=== PATIENT | male | born 1940 | race Caucasian/White ===

== ENCOUNTER 2021-12-07 12:52 | Emergency (ER) | payer OTHER, SELFPAY ==
[2021-12-07] VITALS (7 sets, daily range): BP systolic 133–170; BP diastolic 57–87; PULSE 50–58; RESP 8–18; TEMP 36.4; O2SAT 95–98; BMI 25.0
--- NOTE | 2021-12-07 13:11 | CRLHL7_ITS ---
For Patients: As a result of the Century Cures Act, medical imaging exams and procedure reports are released immediately into your electronic medical record. You may view this report before your referring provider. If you have questions, please contact your health care provider. INDICATION: Chest pain. History of [place] COMPARISON: July 16, 2020 TECHNIQUE: Portable single view study December 07, 2021 1:34 p.m. FINDINGS: TUBES AND LINES: None. HEART AND MEDIASTINUM: The heart size is normal. The mediastinal contour appears normal for patient age. LUNGS AND PLEURAL SPACES: The lungs appear normal.The pleural spaces are unremarkable. OSSEOUS STRUCTURES: Age-appropriate appearance. No acute focal finding. IMPRESSION: No evidence of active pulmonary disease. Dictated by Nikita Jewell MD @ 12/07/2021 1:41:02 PM (Electronically Signed)
--- NOTE | 2021-12-07 13:15 | ED.CHESTPAIN ---
HPI - Chest Pain General Time Seen by Provider: 13:15 Date Seen: 12/07/21 Stated Complaint: Heart attack 1+ year ago, ache in chest Time Seen by Provider: 12/07/21 13:05 Source: patient and RN notes reviewed Mode of arrival: ambulatory Limitations: no limitations History of Present Illness HPI narrative: Patient is coming into the ER with an episode of chest pain that happened this morning. He was just lying in bed resting in when he felt it coming on. It was in the left side of his chest, as well as some in the center of his chest, lasted maybe 45-60 minutes. He did take a nitroglycerin and it did go away. He had a heart attack over a year ago and went to [facility]. He states the vessel was small that they did not put anything in. He is off Plavix now as it has been over a year since his heart attack. He did take an 81 mg aspirin as per his usual routine this morning. The pain is not there now. It was reminiscent of his prior chest pain with this heart attack although that pain continued to intensify in get worse. He had no associated GI symptoms such as nausea, no pain into his extremities, no pain into his jaw or neck. Did not feel any respiratory symptoms with this. He has not had any recent illness, no cough or cold symptoms, no fevers or chills. He was at rest when this came on. Patient does have some chronic left shoulder issues that were not associated with this today. He does tell me that if he lays on his left shoulder is left shoulder will ache. Reviewed with him that that is likely something either with the shoulder itself for rotator cuff but do not feel it is pertinent to his chest symptoms today. MD complaint: chest pain Pertinent past history: coronary artery disease and prior [place] Onset (ago): hour(s) Timing of current episode: now resolved Onset: during rest Pain location: substernal and left chest Pain radiation: none Related Data Home Medications Medication Instructions Recorded Confirmed alendronate 70 mg tablet mg PO 12/07/21 bupropion HCl 300 mg 24 hr tablet, mg PO 12/07/21 extended release clopidogrel 75 mg tablet mg 12/07/21 losartan 25 mg tablet mg 12/07/21 metoprolol succinate 25 mg mg PO 12/07/21 tablet,extended release 24 hr rosuvastatin 20 mg tablet mg 12/07/21 sildenafil 50 mg tablet (Viagra) 50 mg PO DAILY PRN 12/07/21 12/07/21 trazodone 100 mg tablet mg 12/07/21 Review of Systems Status of ROS Reports: 10 or more systems reviewed and unremarkable except as noted in History and below [facility] Medical History (Updated 12/07/21 @ 16:37 by Soumya Chand MD) NSTEMI (non-ST elevated myocardial infarction) Social History Smoking Status: Former smoker Do you use any of these nicotine containing products: None Second hand tobacco smoke exposure: No How often do you have a drink containing alcohol: 4 or more times a week How many standard drinks containing alcohol do you have on a typical day: 1 or 2 How often do you have six or more drinks on one occasion: Never AUDIT-C Alcohol total score: 4 Non-prescribed substance use: denies use Exam Const Vital Signs, click to edit/add: Vital Signs - 24 hr 12/07/21 13:02 12/07/21 14:12 12/07/21 14:30 Temperature 97.6 F Pulse Rate [Right Pulse Oximeter] 57 L 54 L 50 L Respiratory Rate 18 8 L Blood Pressure [Right Upper Arm] 133/57 L 142/69 H 135/74 Pulse Oximetry 98 95 98 12/07/21 15:00 12/07/21 15:30 12/07/21 16:00 Temperature Pulse Rate [Right Pulse Oximeter] 56 L 51 L 51 L Respiratory Rate 15 18 15 Blood Pressure [Right Upper Arm] 141/78 H 146/82 H 154/76 H Pulse Oximetry 97 97 97 12/07/21 16:30 Temperature Pulse Rate [Right Pulse Oximeter] 58 L Respiratory Rate 11 L Blood Pressure [Right Upper Arm] 170/87 H Pulse Oximetry 97 Documenting provider has reviewed patient's vital signs: yes Common normals: no apparent distress, average body habitus, oriented x3, no limitations, healthy appearing and alert General appearance: cooperative and comfortable Orientation/consciousness: Yes awake HENUT Common normals: normocephalic, head/scalp atraumatic, hearing grossly normal bilaterally, external ears normal, EAC's normal, external nose normal, nasal mucous membranes and turbinates normal, moist oral mucous membranes, oropharynx normal and dentition normal Head and scalp: normocephalic and atraumatic Nose: external nose normal and nasal mucous membranes and turbinates normal External ear: external ears normal External auditory canal: EAC's normal Eye Common normals: PERRL, EOMs intact bilaterally, conjunctivae normal and no scleral icterus Conjunctiva: conjunctiva(e) normal Pupil: PERRL Neck & C-Spine Common normals: full ROM, no lymphadenopathy, supple, no meningeal signs, no JVD and thyroid normal Thyroid: thyroid normal Chest Common normals: inspection of chest normal and palpation of chest normal Resp Common normals: normal respiratory effort, no retractions, no use of accessory muscles and clear to auscultation bilaterally Auscultation: clear to auscultation bilaterally Cardio Common normals: no JVD, regular rate (Heart sounds somewhat distant), regular rhythm, S1 normal heart sound, S2 normal heart sound, no gallops, no clicks and no murmurs Rate: regular rate (Heart sounds somewhat distant) Rhythm: regular rhythm Heart sounds: S1 normal and S2 normal GI Common normals: Normal to inspection, nondistended, normoactive bowel sounds present, soft to palpation, non-tender, no hepatosplenomegaly, no masses and no bruits Palpation: soft and no hepatosplenomegaly Extremity Common normals: normal to inspection, full ROM, normal capillary refill, no joint enlargement, no clubbing, cyanosis or edema, no calf tenderness and no pedal edema Neuro Common normals: oriented x3 and gait normal Sensorium/orientation: awake and alert Meningeal signs: no meningeal signs Speech: speech normal Course Course Hospital Course: Patient is comfortable now, certainly this could have been an anginal equivalent. We will give him 324 mg aspirin, place him on cardiac monitoring pulse oximetry, obtained portable chest x-ray and appropriate labs. Other possible etiologies are new respiratory illness, thromboembolic disease. It seems most likely that this is something cardiac however given his history. Need to await my labs and EKG, portable chest x-ray and we will guide therapy accordingly. He is currently hemodynamically stable and pain-free. Reevaluation(s) Reevaluation #1: Reviewed with patient that his EKG and chest x-ray looking fine. Discussed that we do not have labs back yet and I will be back once I have seen numb. He states when he touches his left lower chest wall he can feel some discomfort that reproduces the pain and wonders if this is a cartilage issue. Have reviewed with him we really should await the troponin and laboratory evaluation. I believe this happened around 11:00 a.m. or so per patient. If we draw a 2nd troponin here shortly that would give us coverage over a 3 hour window and if both troponins are normal, can likely discharge to home with appropriate follow-up. Time: 14:40 Vital Signs Vital signs: Initial Vital Signs Temperature 97.6 F 12/07/21 13:02 Temperature Source Temporal Artery Scan 12/07/21 13:02 Pulse Rate 57 L 12/07/21 13:02 Respiratory Rate 18 12/07/21 13:02 Blood Pressure 133/57 L 12/07/21 13:02 Blood Pressure Mean 82 12/07/21 13:02 Blood Pressure Position Sitting 12/07/21 13:02 Pulse Oximetry 98 12/07/21 13:02 Oxygen Delivery Method 12/07/21 13:02 Vital Signs Temperature 97.6 F 12/07/21 13:02 Pulse Rate 57 L 12/07/21 13:02 Respiratory Rate 18 12/07/21 13:02 Blood Pressure 133/57 L 12/07/21 13:02 Pulse Oximetry 98 12/07/21 13:02 Temperature 97.6 F 12/07/21 13:02 Pulse Rate 58 L 12/07/21 16:30 Respiratory Rate 11 L 12/07/21 16:30 Blood Pressure 170/87 H 12/07/21 16:30 Pulse Oximetry 97 12/07/21 16:30 MDM - Chest Pain Lab Data Attestation: I reviewed the patient's lab results. Labs: Lab Results 12/07/21 12/07/21 12/07/21 Range/Units 13:12 14:00 14:00 WBC 4.96 (4.50-11.00) K/uL RBC 3.91 L (4.30-5.90) m/uL Hgb 12.4 L (13.5-17.5) gm/dL Hct 37.4 (37.0-53.0) % MCV 96 (80-100) fL MCH 32 (26-34) pg MCHC 33 (32-36) gm/dL RDW Coeff of Edna 12.2 (11.5-15.5) % Plt Count 137 L (140-440) K/uL Neut % (Auto) 66.7 (42.0-72.0) % Lymph % (Auto) 22.8 (20-44) % Mineral % (Auto) 9.1 (0.0-11.0) % Eos % (Auto) 0.8 (0.0-7.0) % Baso % (Auto) 0.6 (0.0-3.0) % Neut # (Auto) 3.31 (1.7-7.0) K/uL Lymph # (Auto) 1.13 (0.90-2.90) K/uL Mineral # (Auto) 0.50 (0.00-0.90) K/UL Eos # (Auto) 0.04 (0.00-0.50) K/uL Baso # (Auto) 0.03 (0.00-0.30) K/uL Abs Immat Gran (auto) 0.00 (0.00-0.30) K/uL D-Dimer Quant (PE/DVT) 1.41 H (0.00-0.50) ug/ml Sodium (135-149) mmol/L Potassium (3.6-5.1) mmol/L Chloride (96-114) mmol/L Carbon Dioxide (20-32) mmol/L BUN (7-30) mg/dL Creatinine (0.5-1.5) mg/dL Estimated Creat Clear Estimated GFR ml/min Glucose (60-115) mg/dL Calcium (8.4-10.6) mg/dL Magnesium (1.5-2.6) mg/dL Total Bilirubin (0.1-1.5) mg/dL AST (12-35) U/L ALT (4-50) U/L Alkaline Phosphatase (40-150) U/L Troponin I (0.01-0.04) ng/mL NT-Pro-B Natriuret Pep (0-450) PG/mL Total Protein (6.0-8.3) g/dL Albumin (3.3-5.0) g/dL SARS-CoV-2 (PCR) Negative SARS-CoV-2 (Negative) POC Troponin I (0.01-0.04) ng/ml 12/07/21 12/07/21 Range/Units 14:00 14:58 WBC (4.50-11.00) K/uL RBC (4.30-5.90) m/uL Hgb (13.5-17.5) gm/dL Hct (37.0-53.0) % MCV (80-100) fL MCH (26-34) pg MCHC (32-36) gm/dL RDW Coeff of Edna (11.5-15.5) % Plt Count (140-440) K/uL Neut % (Auto) (42.0-72.0) % Lymph % (Auto) (20-44) % Mineral % (Auto) (0.0-11.0) % Eos % (Auto) (0.0-7.0) % Baso % (Auto) (0.0-3.0) % Neut # (Auto) (1.7-7.0) K/uL Lymph # (Auto) (0.90-2.90) K/uL Mineral # (Auto) (0.00-0.90) K/UL Eos # (Auto) (0.00-0.50) K/uL Baso # (Auto) (0.00-0.30) K/uL Abs Immat Gran (auto) (0.00-0.30) K/uL D-Dimer Quant (PE/DVT) (0.00-0.50) ug/ml Sodium 138 (135-149) mmol/L Potassium 4.5 (3.6-5.1) mmol/L Chloride 110 (96-114) mmol/L Carbon Dioxide 26 (20-32) mmol/L BUN 17 (7-30) mg/dL Creatinine 1.0 (0.5-1.5) mg/dL Estimated Creat Clear 53.17 Estimated GFR 76 ml/min Glucose 98 (60-115) mg/dL Calcium 8.4 (8.4-10.6) mg/dL Magnesium 2.2 (1.5-2.6) mg/dL Total Bilirubin 0.3 (0.1-1.5) mg/dL AST 27 (12-35) U/L ALT 23 (4-50) U/L Alkaline Phosphatase 43 (40-150) U/L Troponin I < 0.01 L (0.01-0.04) ng/mL NT-Pro-B Natriuret Pep 210 (0-450) PG/mL Total Protein 6.1 (6.0-8.3) g/dL Albumin 3.6 (3.3-5.0) g/dL SARS-CoV-2 (PCR) (Negative) POC Troponin I 0.03 (0.01-0.04) ng/ml Imaging Data Chest x-ray: Attestation: I have reviewed the pertinent imaging results. Radiologist's impression: Patient: ADONIS KING JR Facility:?[facility] Patient ID:?[id number] Site Patient ID:?[id number]. Site :?[id number] Study:?XRay Chest PORTABLE-12/07/2021 1:30:44 PM Ordering Physician:Ann Dooley Final Report: INDICATION: Chest pain. History of [place] COMPARISON: July 16, 2020 TECHNIQUE: Portable single view study December 07, 2021 1:34 p.m. FINDINGS: TUBES AND LINES: None. HEART AND MEDIASTINUM: The heart size is normal. The mediastinal contour appears normal for patient age. LUNGS AND PLEURAL SPACES: The lungs appear normal.The pleural spaces are unremarkable. OSSEOUS STRUCTURES: Age-appropriate appearance. No acute focal finding. IMPRESSION: No evidence of active pulmonary disease. Dictated by Nikita Jewell MD @ 12/07/2021 1:41:02 PM (Electronic Signature) ECG Data Attestation: I personally reviewed and interpreted this ECG as follows: (Sinus bradycardia, 52 beats per minute. No ischemia noted.) ECG interpretation date: 12/07/21 ECG interpretation time: 13:39 Core Measures AMI core measures followed: No Measure exclusions: not indicated Critical Care Time Critical Care Time Critical Care Time: No Discharge Plan Discharge Clinical Impression: Arteriosclerotic cardiovascular disease, Chest pain Condition: Stable Instructions: Coronary Artery Disease (DC), Chest Pain (ED) Additional Instructions: Continue with current medications, no changes at this point. We will contact you with recommendations from Cardiology as far as follow-up testing. I will hopefully talk to them shortly. Should you have recurrent chest pain or symptoms concerning of chest pain in the interim that you cannot attribute to her shoulder or pinpoint to reproducible chest wall pain, you do need to be re-evaluated. Prescriptions: No Action alendronate 70 mg tablet PO 0RF Label Comments: TAKE 1 TABLET BY MOUTH ONCE PER WEEK IN THE MORNING. TAKE ON AN EMPTY STOMACH WITH A FULL GLASS OF WATER. DO NOT LIE DOWN FOR 1 HOUR. clopidogrel 75 mg tablet 0RF bupropion HCl 300 mg tablet extended release 24 hr PO 0RF trazodone 100 mg tablet 0RF losartan 25 mg tablet 0RF metoprolol succinate 25 mg tablet extended release 24 hr PO 0RF rosuvastatin 20 mg tablet 0RF sildenafil [Viagra] 50 mg tablet 50 mg PO DAILY PRN0RF Rx Instructions: administer 30 minutes to 4 hours before activity Follow Up/Referrals: Wang Coppola MD [Primary Care Provider] - Stand Alone Forms: [facility] Info Instructions
[2021-12-07] MEDS: ASPIRIN 81 MG TAB.CHEW 324 MG PO (13:36)
[2021-12-07 14:05] LABS: Basophils Absolute Auto 0.03 K/uL (0.00-0.30); Basophils Percent Auto 0.6 % (0.0-3.0); Eosinophils Absolute Auto 0.04 K/uL (0.00-0.50); Eosinophils Percent Auto 0.8 % (0.0-7.0); Hematocrit 37.4 % (37.0-53.0); Hemoglobin* 12.4 gm/dL (13.5-17.5); Lymphocytes Absolute Auto 1.13 K/uL (0.90-2.90); Lymphocytes Percent Auto 22.8 % (20-44); Mean Corpuscular HGB Conc 33 gm/dL (32-36); Mean Corpuscular Hemoglobin 32 pg (26-34); Mean Corpuscular Volume 96 fL (80-100); Monocytes Percent Auto 9.1 % (0.0-11.0); Neutrophils Absolute Auto 3.31 K/uL (1.7-7.0); Neutrophils Percent Auto 66.7 % (42.0-72.0); Platelet Count* 137 K/uL (140-440); RDW Coefficient of Variation % 12.2 % (11.5-15.5); Red Blood Count 3.91 m/uL (4.30-5.90); White Blood Count* 4.96 K/uL (4.50-11.00)
[2021-12-07 14:14] LABS: Slide Review Reflex No
[2021-12-07 14:21] LABS: Albumin* 3.6 g/dL (3.3-5.0)
[2021-12-07 14:22] LABS: Chloride* 110 mmol/L (96-114); Potassium* 4.5 mmol/L (3.6-5.1); Sodium* 138 mmol/L (135-149)
[2021-12-07 14:23] LABS: D Dimer Quantitative* 1.41 ug/ml (0.00-0.50)
[2021-12-07 14:24] LABS: Aspartate Amino Transferase* 27 U/L (12-35); Bilirubin Total* 0.3 mg/dL (0.1-1.5); Carbon Dioxide* 26 mmol/L (20-32); Est. Creatinine Clearance* 53.17; Estimated Glomerular Filt Rate 76 ml/min
[2021-12-07 14:25] LABS: Alanine Aminotransferase* 23 U/L (4-50); Alkaline Phosphatase* 43 U/L (40-150); Blood Urea Nitrogen* 17 mg/dL (7-30); Calcium* 8.4 mg/dL (8.4-10.6); Glucose* 98 mg/dL (60-115); Magnesium* 2.2 mg/dL (1.5-2.6); Total Protein* 6.1 g/dL (6.0-8.3)
[2021-12-07 14:33] LABS: NT Pro B Type NatriureticPept* 210 PG/mL (0-450)
[2021-12-07 14:41] LABS: Troponin I* < 0.01 ng/mL (0.01-0.04)
[2021-12-07 15:44] LABS: SARS PCR* Negative SARS-CoV-2 (Negative)
[2021-12-07 16:13] LABS: Troponin, Point-of-Care* 0.03 ng/ml (0.01-0.04)
== END 2021-12-07 16:51 | disposition home or self-care (01) ==
PROVIDERS: Emergency Provider Family Medicine; PCP Surgery
DX: I25.10 Atherosclerotic heart disease of native coronary artery without angina pectoris (principal)
CPT/HCPCS: 36415; 71045; 80053; 83735; 83880; 84484; 85025; 85379; 87635; 93005; 99284; 99285; A9270

== ENCOUNTER 2022-05-11 13:00 | Outpatient (RCR) | payer OTHER, SELFPAY | END 2022-07-18 12:08 | disposition home or self-care (01) | PROVIDERS: PCP Surgery; Visit Provider Surgery | DX: R32 Unspecified urinary incontinence (principal); M51.34 Other intervertebral disc degeneration, thoracic region; M43.16 Spondylolisthesis, lumbar region; M43.14 Spondylolisthesis, thoracic region; Z51.89 Encounter for other specified aftercare | CPT/HCPCS: 97110; 97140; 97162; 97164 ==

== ENCOUNTER 2022-07-08 16:28 | Emergency (ER) | payer OTHER, SELFPAY ==
[2022-07-08] VITALS (10 sets, daily range): BP systolic 139–164; BP diastolic 71–81; PULSE 67–81; RESP 12; TEMP 36.6; O2SAT 94–98; BMI 25.8
[2022-07-08 17:51] LABS: Basophils Absolute Auto 0.03 K/uL (0.00-0.30); Basophils Percent Auto 0.4 % (0.0-3.0); Eosinophils Absolute Auto 0.05 K/uL (0.00-0.50); Eosinophils Percent Auto 0.7 % (0.0-7.0); Hemoglobin* 13.6 gm/dL (13.5-17.5); Immature Granulocytes Abs Auto 0.01 K/uL (0.00-0.30); Immature Granulocytes Pct Auto 0.1 %; Lymphocytes Percent Auto 18.6 % (20-44); Mean Corpuscular HGB Conc 34 gm/dL (32-36); Mean Corpuscular Hemoglobin 31 pg (26-34); Mean Corpuscular Volume 92 fL (80-100); Monocytes Percent Auto 11.4 % (0.0-11.0); Neutrophils Absolute Auto 5.17 K/uL (1.7-7.0); Neutrophils Percent Auto 68.8 % (42.0-72.0); Platelet Count* 182 K/uL (140-440); RDW Coefficient of Variation % 12.8 % (11.5-15.5); Red Blood Count 4.34 m/uL (4.30-5.90); White Blood Count* 7.52 K/uL (4.50-11.00)
[2022-07-08 17:55] LABS: Albumin* 4.3 g/dL (3.3-5.0); Chloride* 110 mmol/L (96-114); Sodium* 141 mmol/L (135-149)
[2022-07-08 17:56] LABS: Potassium* 3.8 mmol/L (3.6-5.1); Slide Review Reflex No
[2022-07-08 17:58] LABS: Carbon Dioxide* 25 mmol/L (20-32); Creatinine* 1.1 mg/dL (0.5-1.5); Est. Creatinine Clearance* 50.08; Estimated Glomerular Filt Rate 68 ml/min
[2022-07-08 17:59] LABS: Alanine Aminotransferase* 18 U/L (4-50); Alkaline Phosphatase* 100 U/L (40-150); Aspartate Amino Transferase* 24 U/L (12-35); Bilirubin Direct* 0.1 mg/dL (0.0-0.5); Bilirubin Total* 0.5 mg/dL (0.1-1.5); Blood Urea Nitrogen* 19 mg/dL (7-30); Calcium* 9.2 mg/dL (8.4-10.6); Glucose* 116 mg/dL (60-115); Total Protein* 7.1 g/dL (6.0-8.3)
[2022-07-08 18:11] LABS: Troponin I* 0.02 ng/mL (0.01-0.04)
[2022-07-08 18:15] LABS: C Reactive Protein* < 0.5 mg/dL (0.5-1.0)
--- NOTE | 2022-07-08 18:28 | ED.GENADULT ---
HPI - General Adult General Chief complaint: Shortness of Breath/Dyspnea Stated complaint: Had Heart attack symptoms last night Time Seen by Provider: 07/08/22 16:32 Source: patient and family Mode of arrival: ambulatory Limitations: no limitations History of Present Illness HPI narrative: 81-year-old male coming in today with his , concerned about an episode he suffered last night. He states that around 2:00 a.m. in the morning he started having palpitations. States that his heart was beating faster and harder and that he was skipping beats. This made him feel short of breath and he states that he had to take very deep breaths in order to fill his lungs. At some point in time he felt lightheaded like he was going to pass out but he never did. He states that the episode lasted for about 2 hours. He fell asleep around 4:00 a.m. this morning and slept his usual hours. He states that he always goes to bed after midnight and sleeps in late, this is not unusual for him. He woke up this morning asymptomatic and has had a completely normal day. He states that he called his clinic and the clinic told him to come to the emergency room. He stated that he was not having chest pain at that time, no fevers or chills. No nausea or vomiting. He states that he has had palpitations in the past but never quite this strong. He was not diaphoretic. He denies any vertiginous symptoms. And again he has been completely asymptomatic all day, greater than 12 hours. Related Data Home Medications Medication Instructions Recorded Confirmed alendronate 70 mg tablet mg PO 12/07/21 06/22/22 losartan 25 mg tablet mg 12/07/21 06/22/22 metoprolol succinate 25 mg mg PO 12/07/21 06/22/22 tablet,extended release 24 hr rosuvastatin 20 mg tablet mg 12/07/21 06/22/22 sildenafil 50 mg tablet (Viagra) 50 mg PO DAILY PRN 12/07/21 06/22/22 trazodone 100 mg tablet mg 12/07/21 06/22/22 Allergies Allergy/AdvReac Type Severity Reaction Status Date / Time No Known Drug Allergies Allergy Verified 06/22/22 14:16 Review of Systems Status of ROS: Reports: 10 or more systems reviewed and unremarkable except as noted in History and below [facility] Medical History Fall NSTEMI (non-ST elevated myocardial infarction) Social History Smoking Status: Former smoker Do you use any of these nicotine containing products: None Second hand tobacco smoke exposure: No How often do you have a drink containing alcohol: 4 or more times a week How many standard drinks containing alcohol do you have on a typical day: 1 or 2 How often do you have six or more drinks on one occasion: Never AUDIT-C Alcohol total score: 4 Non-prescribed substance use: former substance user Non-prescribed substance use details: thc Exam Narrative: Exam Narrative: Well-nourished well-developed patient in no acute distress. Alert and oriented. Answers questions appropriately. Mood and affect are appropriate. Thoughts are goal oriented and rational. No tangential or magical thinking noted. Patient speaks in full sentences without needing to catch their breath. HEENT: Normocephalic atraumatic. Pupils are equally round reactive to light. Extraocular muscles are intact. Conjunctivae are moist without any icterus noted. Moist mucous membranes. Posterior pharynx is normal. Neck is soft without any lymphadenopathy or thyromegaly. No masses are appreciated. Cardiovascular: Heart is regular rate and rhythm S1 and S2 are present without any murmurs. Lungs: Clear to auscultation bilaterally no wheezes rhonchi or rales are appreciated. Patient takes deep breaths without any discomfort. Abdomen: Soft and nontender nondistended with normal bowel sounds. No guarding or rebound. No masses or organomegaly appreciated. Extremities: Bilateral lower extremities are without edema. Normal DP and PT pulses. Skin: Well perfused without any obvious rashes. Const: Vital Signs, click to edit/add: Vital Signs - 24 hr 07/08/22 16:37 07/08/22 16:46 07/08/22 17:03 Temperature 97.9 F Pulse Rate 76 Pulse Rate [Pulse Oximeter] 81 Respiratory Rate 12 Blood Pressure Blood Pressure [Le ft Upper Arm] 164/81 H Pulse Oximetry 97 97 95 Oxygen Delivery Me thod Room Air 07/08/22 17:30 07/08/22 17:40 Temperature Pulse Rate 71 75 Pulse Rate [Pulse Oximeter] Respiratory Rate Blood Pressure 147/72 H Blood Pressure [Le ft Upper Arm] Pulse Oximetry 96 94 Oxygen Delivery Me thod Course Course Hospital Course: Patient was placed on the content development manager. IV was established and labs were drawn. Labs were unremarkable. Patient had no episodes of arrhythmias while he was here. His EKG, read by me, shows normal sinus rhythm with a left axis deviation, pulse 73. Vital Signs Vital signs: Initial Vital Signs Temperature 97.9 F 07/08/22 16:37 Temperature Source Temporal Artery Scan 07/08/22 16:37 Pulse Rate 81 07/08/22 16:37 Pulse Rhythm 07/08/22 16:37 Respiratory Rate 12 07/08/22 16:37 Blood Pressure 164/81 H 07/08/22 16:37 Blood Pressure Mean 108 07/08/22 16:37 Blood Pressure Position Sitting 07/08/22 16:37 Pulse Oximetry 97 07/08/22 16:37 Oxygen Delivery Method 07/08/22 16:37 Vital Signs Temperature 97.9 F 07/08/22 16:37 Pulse Rate 81 07/08/22 16:37 Respiratory Rate 12 07/08/22 16:37 Blood Pressure 164/81 H 07/08/22 16:37 Pulse Oximetry 97 07/08/22 16:37 Oxygen Delivery Method 07/08/22 16:37 Temperature 97.9 F 07/08/22 16:37 Pulse Rate 75 07/08/22 17:40 Respiratory Rate 12 07/08/22 16:37 Blood Pressure 147/72 H 07/08/22 17:40 Pulse Oximetry 94 07/08/22 17:40 Oxygen Delivery Method 07/08/22 16:37 Medical Decision Making MDM Narrative Medical decision making narrative: 81-year-old male with an episode of palpitations overnight. Patient tells me that there is a possibility that it could have been anxiety but is not quite sure. At this time I see no evidence of any abnormalities, workup was unremarkable and his period of observation was unremarkable also. I do recommend he follow up with primary care provider or his greenkeeper. At that time they can discuss whether or not he needs any further testing or even Holter monitor. Certainly if his symptoms return I do want him to come to the ER. Patient was agreeable with everything we discussed had no other questions. Medical Records Medical records reviewed: Yes I reviewed the patient's medical records Lab Data Lab results reviewed: Yes I reviewed the patient's lab results Labs: Lab Results 07/08/22 07/08/22 07/08/22 Range/Units 17:17 17:17 17:17 WBC 7.52 (4.50-11.00) K/uL RBC 4.34 (4.30-5.90) m/uL Hgb 13.6 (13.5-17.5) gm/dL Hct 40.0 (37.0-53.0) % MCV 92 (80-100) fL MCH 31 (26-34) pg MCHC 34 (32-36) gm/dL RDW Coeff of Edna 12.8 (11.5-15.5) % Plt Count 182 (140-440) K/uL Neut % (Auto) 68.8 (42.0-72.0) % Lymph % (Auto) 18.6 L (20-44) % [place] % (Auto) 11.4 H (0.0-11.0) % Eos % (Auto) 0.7 (0.0-7.0) % Baso % (Auto) 0.4 (0.0-3.0) % Neut # (Auto) 5.17 (1.7-7.0) K/uL Lymph # (Auto) 1.40 (0.90-2.90) K/uL [place] # (Auto) 0.90 (0.00-0.90) K/UL Eos # (Auto) 0.05 (0.00-0.50) K/uL Baso # (Auto) 0.03 (0.00-0.30) K/uL Sodium 141 (135-149) mmol/L Potassium 3.8 (3.6-5.1) mmol/L Chloride 110 (96-114) mmol/L Carbon Dioxide 25 (20-32) mmol/L BUN 19 (7-30) mg/dL Creatinine 1.1 (0.5-1.5) mg/dL Estimated Creat Clear 50.08 Estimated GFR 68 ml/min Glucose 116 H (60-115) mg/dL Calcium 9.2 (8.4-10.6) mg/dL Total Bilirubin 0.5 Cancelled (0.1-1.5) mg/dL Direct Bilirubin 0.1 Cancelled (0.0-0.5) mg/dL AST 24 Cancelled (12-35) U/L ALT 18 Cancelled (4-50) U/L Alkaline Phosphatase 100 Cancelled (40-150) U/L Troponin I 0.02 Cancelled (0.01-0.04) ng/mL C-Reactive Protein < 0.5 L (0.5-1.0) mg/dL Total Protein 7.1 Cancelled (6.0-8.3) g/dL Albumin 4.3 Cancelled (3.3-5.0) g/dL ECG Data Attestation: I personally reviewed and interpreted this ECG as follows: Discharge Plan Discharge Clinical Impression: Palpitation Patient Disposition: Home, Self-Care Condition: Stable Additional Instructions: Your workup today was entirely normal. Recommend you follow-up with your primary care provider or your greenkeeper to discuss any necessary next steps. If your symptoms return I do want you to return to the ER. Prescriptions: No Action alendronate 70 mg tablet PO Label Comments: TAKE 1 TABLET BY MOUTH ONCE PER WEEK IN THE MORNING. TAKE ON AN EMPTY STOMACH WITH A FULL GLASS OF WATER. DO NOT LIE DOWN FOR 1 HOUR. trazodone 100 mg tablet losartan 25 mg tablet metoprolol succinate 25 mg tablet extended release 24 hr PO rosuvastatin 20 mg tablet sildenafil [Viagra] 50 mg tablet 50 mg PO DAILY PRN Rx Instructions: administer 30 minutes to 4 hours before activity Follow Up/Referrals: Ann Ramirez PA-C [Primary Care Provider] - Stand Alone [facility] Info [facility]
== END 2022-07-08 18:48 | disposition home or self-care (01) ==
PROVIDERS: Emergency Provider Family Medicine; PCP Student in an Organized Health Care Education/Training Program
DX: R00.2 Palpitations (principal)
CPT/HCPCS: 36415; 80048; 80076; 84484; 85025; 86140; 93005; 94761; 99284

== ENCOUNTER 2022-07-16 13:56 | Emergency (ER) | payer OTHER, SELFPAY ==
[2022-07-16 14:02] VITALS: BP 141/75; PULSE 66; RESP 18; TEMP 36.9; O2SAT 99; BMI 25.8
--- NOTE | 2022-07-16 15:07 | ED.GENADULT ---
HPI - General Adult General Chief complaint: Arrhythmia/Palpitations Stated complaint: Heart Palpitations,Dizziness,Feels like fainting Time Seen by Provider: 07/16/22 14:06 Source: patient Mode of arrival: ambulatory Limitations: no limitations History of Present Illness HPI narrative: Patient is an 81-year-old male coming in today concerned about palpitations. States that last night he had a 30 minute episode where his heart was beating very strongly and irregularly. He felt dizzy when this was occurring. He states that he did come in last night because he always knows that the episodes will go away. His previous 1 was on the 08 of July and he states he has not had anything since. He denies any chest pain or shortness of breath. He comes in this morning because he feels like he is going to . Patient tells me that he fell on the ice over a month ago and injured his shoulder. He states that he still has soreness from that fall. He is concerned because he has heard many people say ?once you fall, that is the beginning of the end?. Patient has no symptoms right now. Related Data Home Medications Medication Instructions Recorded Confirmed alendronate 70 mg tablet mg PO 12/07/21 06/22/22 losartan 25 mg tablet mg 12/07/21 06/22/22 metoprolol succinate 25 mg mg PO 12/07/21 06/22/22 tablet,extended release 24 hr rosuvastatin 20 mg tablet mg 12/07/21 06/22/22 sildenafil 50 mg tablet (Viagra) 50 mg PO DAILY PRN 12/07/21 06/22/22 trazodone 100 mg tablet mg 12/07/21 06/22/22 Allergies Allergy/AdvReac Type Severity Reaction Status Date / Time No Known Drug Allergies Allergy Verified 06/22/22 14:16 Review of Systems Status of ROS: Reports: 10 or more systems reviewed and unremarkable except as noted in History and below [facility] Medical History Fall NSTEMI (non-ST elevated myocardial infarction) Social History Smoking Status: Former smoker Do you use any of these nicotine containing products: None Second hand tobacco smoke exposure: No How often do you have a drink containing alcohol: 4 or more times a week How many standard drinks containing alcohol do you have on a typical day: 1 or 2 How often do you have six or more drinks on one occasion: Never AUDIT-C Alcohol total score: 4 Non-prescribed substance use: former substance user Non-prescribed substance use details: thc Exam Narrative: Exam Narrative: Well-nourished well-developed patient in no acute distress. Alert and oriented. Answers questions appropriately. Mood and affect are appropriate. Thoughts are goal oriented and rational. No tangential or magical thinking noted. Patient speaks in full sentences without needing to catch his breath. HEENT: Normocephalic atraumatic. Pupils are equally round reactive to light. Extraocular muscles are intact. Conjunctivae are moist without any icterus noted. Moist mucous membranes. Posterior pharynx is normal. Neck is soft without any lymphadenopathy or thyromegaly. No masses are appreciated. Cardiovascular: Heart is regular rate and rhythm S1 and S2 are present without any murmurs. Lungs: Clear to auscultation bilaterally no wheezes rhonchi or rales are appreciated. Patient takes deep breaths without any discomfort. Abdomen: Soft and nontender nondistended with normal bowel sounds. Extremities: Bilateral lower extremities are without edema. Normal DP and PT pulses. Skin: Well perfused without any obvious rashes. Const: Vital Signs, click to edit/add: Vital Signs - 24 hr 07/16/22 14:02 Temperature 98.4 F Pulse Rate [Right Pulse Oximeter] 66 Respiratory Rate 18 Blood Pressure [Ri ght Upper Arm] 141/75 H Pulse Oximetry 99 Oxygen Delivery Me thod Room Air Course Course Hospital Course: Patient was placed on a cardiac/vascular sonographer, no arrhythmia is noted while he was here. EKG showed normal sinus rhythm with a left shift axis deviation, pulse 65. This is unchanged from previous EKG. Troponin was 0. Discussed with patient next steps: We talked about hospitalization and cardiac/vascular sonographer while here. I do not think that this will be a good option for him given that his episodes are so spread out. And given the fact that he is completely asymptomatic at this time he would not qualify for hospitalization. We discussed a 24 hour Holter monitor which is something we can do out of the ER. Patient states that he has had these before he is not quite sure why but he felt that this was a good idea. Vital Signs Vital signs: Initial Vital Signs Temperature 98.4 F 07/16/22 14:02 Temperature Source Temporal Artery Scan 07/16/22 14:02 Pulse Rate 66 07/16/22 14:02 Respiratory Rate 18 07/16/22 14:02 Blood Pressure 141/75 H 07/16/22 14:02 Blood Pressure Mean 97 07/16/22 14:02 Blood Pressure Position Sitting 07/16/22 14:02 Pulse Oximetry 99 07/16/22 14:02 Oxygen Delivery Method 07/16/22 14:02 Vital Signs Temperature 98.4 F 07/16/22 14:02 Pulse Rate 66 07/16/22 14:02 Respiratory Rate 18 07/16/22 14:02 Blood Pressure 141/75 H 07/16/22 14:02 Pulse Oximetry 99 07/16/22 14:02 Oxygen Delivery Method 07/16/22 14:02 Temperature 98.4 F 07/16/22 14:02 Pulse Rate 66 07/16/22 14:02 Respiratory Rate 18 07/16/22 14:02 Blood Pressure 141/75 H 07/16/22 14:02 Pulse Oximetry 99 07/16/22 14:02 Oxygen Delivery Method 07/16/22 14:02 Medical Decision Making MDM Narrative Medical decision making narrative: 81-year-old male with intermittent episodes of palpitations. Since our last visit in the ER patient tells me he has not followed up with his primary care provider or his communications technologist as it was recommended for him to do. We discussed the importance of this follow-up at this time. Patient will be discharged home on a 48 hour Holter. And once again we had the same conversation we had last time he was in the ER that he needs to come into the emergency department while he is symptomatic instead of waiting until the next day when his symptoms have abated. Patient states that he understands and has no other questions. Lastly, we discussed that his fall does not mean that he is going to . Medical Records Medical records reviewed: Yes I reviewed the patient's medical records Lab Data Lab results reviewed: Yes I reviewed the patient's lab results Labs: Lab Results 07/16/22 Range/Units 14:38 POC Troponin I 0.00 L (0.01-0.04) ng/ml ECG Data Attestation: I personally reviewed and interpreted this ECG as follows: Discharge Plan Discharge Clinical Impression: Palpitation Patient Disposition: Home, Self-Care Condition: Stable Additional Instructions: You will be to follow-up with your primary care provider or communications technologist to go over the results of her Holter monitor. You need to return to the emergency department if this episode occurs again, return to the ER while the episode is occurring. You also may need longer cardiac monitoring that we can provide from the emergency department. You should have this conversation with your primary care provider or your communications technologist. Prescriptions: No Action alendronate 70 mg tablet PO Label Comments: TAKE 1 TABLET BY MOUTH ONCE PER WEEK IN THE MORNING. TAKE ON AN EMPTY STOMACH WITH A FULL GLASS OF WATER. DO NOT LIE DOWN FOR 1 HOUR. trazodone 100 mg tablet losartan 25 mg tablet metoprolol succinate 25 mg tablet extended release 24 hr PO rosuvastatin 20 mg tablet sildenafil [Viagra] 50 mg tablet 50 mg PO DAILY PRN Rx Instructions: administer 30 minutes to 4 hours before activity Follow Up/Referrals: Ann Ramirez PA-C [Primary Care Provider] - Stand Alone Forms: [employer] Info Instructions
[2022-07-16 15:18] VITALS: BP 124/69; PULSE 61; RESP 18; O2SAT 96
== END 2022-07-16 16:01 | disposition home or self-care (01) ==
PROVIDERS: Emergency Provider Family Medicine; PCP Student in an Organized Health Care Education/Training Program
DX: R00.2 Palpitations (principal)
CPT/HCPCS: 84484; 93005; 93225; 93226; 99284

== ENCOUNTER 2022-10-06 12:40 | Outpatient (RCR) | payer OTHER, SELFPAY ==
--- NOTE | 2022-10-06 14:01 | PT.OPEX ---
PT [place] Outpatient Eval PT [facility] Outpatient Eval Start: 10/06/22 07:19 Freq: Status: Active Protocol: Document 10/06/22 07:23 TORSTEN (Rec: 10/06/22 07:28 CLK [id number]) E-signed By Fallon Pino PT Physical Therapy Outpatient Evaluation Insurance Information Recert Due Date 12/31/22 Insurance Name Medicaid Medical Diagnosis Sterno-Clavicular Pain / Rt shoulder pain Thoracic Pain Treating Diagnosis Rt shoulder pain, thoracic pain Poor posture Generalized trunk/core weakness Referring MD Dr Huey Barbosa Subjective Subjective Freddy reports having had a fall in June. They have 5 steps to go out the back door, slipped on ice on his 2nd step. His legs flew up into the air and I jammed my Lt shoulder and had pain into sternum and lateral shoulder, also struck my mid back. He was taking 3 ibuprofen in the morning and again 3 in the afternoon. Symptoms have reduced and improved over the last month, but I sleep with my arm in a different position or it causes pain (less ER demonstrated). He had X-rays twice and skeletal damage was not present. Sternal pain is better and sleeping pain is better. Quality of sleep is in question. He was also DX with a concussion and I saw OT for that. 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 [place] Preferred Name Freddy Precautions Treatment Precautions/Contraindications Heart Condition, Stroke, Epilepsy, arthritis, Depression, concussion in June 2022 Weight Bearing Status Full Weight Bearing Therapy Limitations/Systems Review Vision,Hearing Objective Range of Motion Lt CX ROT is 50% less than motion to the Rt - end pain Slightly reduced CX EXT, but pain free Strength Normal 5/5 and tested without pain Palpation Increased tone of Lt UT Posture Increased upper CX lordosis and increased thoracic kyphosis Assessment Assessment/Impression 81 yo male with DX of Rt shoulder Pain/ Sterno- Clavicular Pain / Thoracic Spine Pain. He arrived via IND ambulation without any AD. He presents with very poor posture of forward trunk and head with increased upper cervical lordosis, increased thoracic kyphosis. His kenneth shoulder AROM and MMT are normal and symmetric, tested pain free. Hypertonicity of Lt UT, levator and eknneth pectoralis major/minor. Reduced mobility noted with grade 3 mobs to full thoracic vert and Lt lower CX facet joints. He will benefit from cont skilled physical therapy to educate in proper stretch/ strength and STM/MET/Mobs. Thank you for this referral. Plan of Care Rehabilitation Potential Good Physical Therapy Goals In 4-6 visits, Freddy will be able to: 1. Demonstrate improved CX Lt ROT by at least 20 deg. 2. Sleep for up to 5 hours without awakening secondary to shoulder or clavicular pain 75% of the time.j 3. IND proper execution of HEP with emphasis on reps, alignment and HOLD durations. 4. 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 Coordination/Communication With Referral Source Treatment Plan/Direct Interventions Joint Mobilization,Manual Therapy,Neuromuscular Re-ed, Self-Care/Home Management, Therapeutic Activities, Therapeutic Exercises Frequency/Duration 1X/Wk for 10 visits Patient Will Be Discharged From Therapy Completion of LTG(s),Skills Plateau,Independent w/HEP, Independently Progressing Evaluation Billing Untimed Code Treatment Minutes 22 Complexity Moderate Certification Information Initial Certification Date 10/06/22 Ending Certification Date 12/31/22 Provider Signature Shows Agreement With POC & Medical Necessity Physician Signature & Date Requested Please Sign/Date Here Physician Comment/Change : Physician NPI Number #
== END 2022-12-26 13:47 | disposition home or self-care (01) ==
PROVIDERS: PCP Student in an Organized Health Care Education/Training Program; Visit Provider Family Medicine
DX: M25.511 Pain in right shoulder (principal); M54.6 Pain in thoracic spine; M62.81 Muscle weakness (generalized); R29.3 Abnormal posture; Z51.89 Encounter for other specified aftercare
CPT/HCPCS: 97110; 97140; 97162

== ENCOUNTER 2022-11-09 10:26 | Day surgery (SDC) | payer OTHER, SELFPAY ==
[2022-11-09] MEDS: TETRACAINE 0.5% OPHTH 1 DROP EYE-LEFT (10:47)
[2022-11-09 10:52] VITALS: BMI 25.6
[2022-11-09] MEDS: SODIUM CHLORIDE 0.9 % (FLUSH) 10 ML SYRINGE IVF (11:00)
[2022-11-09] MEDS: KETOROLAC OPHTH 0.5% 1 DROP EYE-LEFT ×3 (11:00→11:10)
[2022-11-09 11:33] VITALS: BP 138/76; PULSE 61; RESP 16; TEMP 36.6; O2SAT 97
[2022-11-09] MEDS: TETRACAINE 0.5% OPHTH 2 DROP EYE-LEFT (12:20)
--- NOTE | 2022-11-09 12:20 | W.ANESCHARGE ---
Anesthesia Charges Start Date/Time Anesthesia Start Date: 11/09/22 Anesthesia Start Time: 12:12 Stop Date/Time Anesthesia Stop Date: 11/09/22 Anesthesia Stop Time: 12:42 Summary Extremes of Age - Over 70 or under 1: MDA
[2022-11-09] MEDS: BALANCED SALT IRRIG SOLN 15 ML EYE-LEFT (12:24)
[2022-11-09] MEDS: BRIMONIDINE TARTRATE 0.2% OPHTH 1 DROP EYE-LEFT (12:35)
--- NOTE | 2022-11-09 12:40 | W.ANESCHARGE ---
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
[2022-11-09 12:42] VITALS: BP 113/67; PULSE 56; RESP 16; TEMP 36.7; O2SAT 97
--- NOTE | 2022-11-09 12:48 | P.PCN_ITS ---
Procedure Note Date Seen: 11/09/22 Will [facility] bill your pro fee for this procedure?: No Procedure: left phaco with iol Procedure Description: NAME OF PROCEDURE Rika phacoemulsification, left eye, with posterior chamber lens implant. PREOPERATIVE DIAGNOSIS Nuclear sclerotic cortical combined cataract, left eye. POSTOPERATIVE DIAGNOSIS Nuclear sclerotic cortical combined cataract, left eye. INDICATIONS FOR PROCEDURE The patient has noted that his vision in the left eye is failing. Severity 7/10. Unable to correct with glasses/contact lenses; has disabling night glare when driving, difficulty reading. Because of this, the patient elected to proceed with surgical repair. I have explained the risks, benefits, alternative treatments to the patient including possible loss of the eye under correction, over correction, need for more surgery. The patient understands, accepts, and elects to proceed with surgical repair. PROCEDURE The left eye was dilated with a combination 1% Mydriacyl, 2.5% phenylephrine with topical Ocufen and Vigamox applied to the corneal surface. The patient was brought to the main operating room where under IV sedation, after pausing to identify the correct patient, correct intraoperative lens, power [] diopters, the left eye was prepped and draped in usual sterile fashion for intraocular surgery. A lid speculum was placed and a paracentesis created at6 o'clock. The chamber was filled with OVD and entered temporally with a keratome. A continuous tear capsulotomy was performed. The nucleus was hydrodissected and emulsified with local anesthetic and emulsified in a chop technique in the capsular bag. Residual cortex was cleaned. The capsule was clear. At this point, DIBOO 20.0 diopter posterior chamber lens implant was injected into the capsular bag and was well centered. Residual OVD was cleaned from behind the implant from the capsular bag. The incision hydrated and noted to be leak free. Topical Alphagan, pilocarpine, and Vigamox were applied to the corneal surface and the patient returned to recovery in good condition having tolerated the procedure well. CONDITION ON DISCHARGE Satisfactory.
[2022-11-09 12:58] VITALS: BP 110/77; PULSE 57; RESP 16; O2SAT 98
== END 2022-11-09 13:21 | disposition home or self-care (01) ==
PROVIDERS: PCP Student in an Organized Health Care Education/Training Program; Visit Provider Ophthalmology
PROC: (CPT 66984; principal; 2022-11-09 12:00)
DX: H25.812 Combined forms of age-related cataract, left eye (principal)
CPT/HCPCS: 66984; 00142; 99100; A9270; J2250; J3010; S0020; V2632

== ENCOUNTER 2022-11-28 10:18 | Outpatient (CLI) | payer OTHER, SELFPAY ==
--- NOTE | 2022-11-28 08:39 | W.ANESCHARGE ---
Anesthesia Charges Start Date/Time Anesthesia Start Date: 11/28/22 Anesthesia Start Time: 11:52 Stop Date/Time Anesthesia Stop Date: 11/28/22 Anesthesia Stop Time: 12:19 Summary Extremes of Age - Over 70 or under 1: MDA
--- NOTE | 2022-11-28 12:23 | P.ANES_ITS ---
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
== END 2022-11-28 10:19 | disposition home or self-care (01) ==
LOC: OP CLINIC 10:19
PROVIDERS: PCP Student in an Organized Health Care Education/Training Program; Visit Provider Internal Medicine Gastroenterology
DX: Z12.11 Encounter for screening for malignant neoplasm of colon (principal); K63.5 Polyp of colon; Z86.010 Personal history of colon polyps
CPT/HCPCS: 45380; 811; 88305; 99100; J2250; J3010

== ENCOUNTER 2023-08-11 12:17 | Emergency (ER) | payer OTHER, SELFPAY ==
[2023-08-11] VITALS (7 sets, daily range): BP systolic 122–154; BP diastolic 61–75; PULSE 67–77; RESP 18; TEMP 36.2; O2SAT 94–97; BMI 25.1
--- NOTE | 2023-08-11 12:34 | ED_ITS ---
HPI - General Adult General Date Seen: 08/11/23 Chief complaint: Chest Pain Stated complaint: chest pain Time Seen by Provider: 08/11/23 12:33 History of Present Illness HPI narrative: 82-year-old gentleman with a history of coronary disease and previous NSTEMI pr esents to the ER for chest pain. Has a history of CAD. He used to be on Plavix but is now just on aspirin. He is down to 12.5 mg of metoprolol per day. He still takes his rosuvastatin. He says he had a small heart attack years ago. His angiogram showed that he had a very small blocked artery that was too small to stent. He follows with [facility] for his cardiovascular care. His last checkup was almost a year ago. He recalls that his sap project manager told him he should have an echo, but he still due to get that done. He is actually here because his sap project manager nurse to assist told him to come to the ER today. He is not having any symptoms today or this week. He says that he had 2 separate episodes of chest discomfort (not really a pain, and if it was a pain it was only ?very mild?). They happen sometime last week. Most recent 1 was possibly last Monday but he is not even sure about that it might have been before that. He does not really know what brought the pains on but they were not associated with any activity or exertion. With the 1st episode the symptom resolved after he took 1 sublingual nitro. With the 2nd episode he had to take 2 sublingual nitros. He says he has not had any further symptoms all week long. He sent his sap project manager a message through the Internet but did not hear back until today and was told to come in. He is not having any other symptoms. No shortness of breath. No nausea. No sweaty spells. No syncope. No palpitations. 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 No swelling in his legs. No stress. He does have a history of GERD and sometimes has heartburn but is not really bothering him this week. He has a strong family history of coronary disease. He has high blood pressure on metoprolol. He has high cholesterol. He does not smoke tobacco but he does smoke marijuana. No recent travel. No history of DVT/PE. Review of medical record-she was seen in the ER during November 2021 for chest pain. His sap project manager from [facility] recommended a walking Lexiscan stress test in follow-up. Patient says that he does not think he has had a stress test for several years. Related Data Home Medications Medication Instructions Recorded Confirmed alendronate 70 mg tablet 70 mg PO 12/07/21 06/22/22 losartan 25 mg tablet mg 12/07/21 06/22/22 metoprolol succinate 25 mg mg PO 12/07/21 06/22/22 tablet,extended release 24 hr rosuvastatin 20 mg tablet mg 12/07/21 06/22/22 sildenafil 50 mg tablet (Viagra) 50 mg PO DAILY PRN 12/07/21 08/11/23 trazodone 100 mg tablet mg 12/07/21 06/22/22 hydroxyzine HCl 25 mg tablet mg PO 11/08/22 Previous Rx's Medication Instructions Recorded meclizine 25 mg tablet 25 mg PO TID PRN #15 tabs 10/02/22 Allergies Allergy/AdvReac Type Severity Reaction Status Date / Time No Known Drug Allergies Allergy Verified 11/09/22 10:49 [facility] Medical History (Updated 08/11/23 @ 15:57 by Alexi Warner MD) Depression ?F32.A - Depression, unspecified (ICD-10) Ascending aorta dilatation ?I77.810 - Thoracic aortic ectasia (ICD-10) Dysthymic disorder ?F34.1 - Dysthymic disorder (ICD-10) Fall ?W19.XXXA - Unspecified fall, initial encounter (ICD-10) NSTEMI (non-ST elevated myocardial infarction) ?I21.4 - Non-ST elevation (NSTEMI) myocardial infarction (ICD-10) Social History Smoking Status: Former smoker Do you use any of these nicotine containing products: None Second hand tobacco smoke exposure: No How often do you have a drink containing alcohol: 4 or more times a week Alcohol type: beer How many standard drinks containing alcohol do you have on a typical day: 1 or 2 How often do you have six or more drinks on one occasion: Never AUDIT-C Alcohol total score: 4 Non-prescribed substance use: marijuana (any form) Caffeine: Yes Exam Narrative: Exam Narrative: Constitutional: Appears well-developed and well-nourished. Alert. Conversant. Non toxic. HENT: Head: Atraumatic. Nose: Nose normal. Mouth/Throat: Oral mucosa is clear and moist. no trismus. Pharynx normal. Eyes: Conjunctivae normal. EOM normal. Pupils equal, round, and reactive to light. No scleral icterus. Neck: Normal range of motion. Neck supple. No tracheal deviation present. No JVD Cardiovascular: Normal rate, regular rhythm. No gallop. No friction rub. No murmur heard. Symmetric radial and PT artery pulses Pulmonary/Chest: Effort normal. No stridor. No respiratory distress. No wheezes. No rales. No rhonchi . No tenderness. Abdominal: Soft. Bowel sounds normal. No distension. No mass. No tenderness. No rebound. No guarding. Musculoskeletal: RUE: Normal range of motion. No tenderness. No deformity LUE: Normal range of motion. No tenderness. No deformity RLE: Normal range of motion. No edema. No tenderness. No deformity LLE: Normal range of motion. No edema. No tenderness. No deformity Neurological: Alert and oriented to person, place, and time. Normal strength. CN II-VII intact. No sensory deficit. GCS eye subscore is 4. GCS verbal subscore is 5. GCS motor subscore is 6. Normal coordination Skin: Skin is warm and dry. No rash noted. No pallor. Normal capillary refill. Psychiatric: Normal mood. Normal affect. Const: Vital Signs, click to edit/add: Vital Signs - 24 hr 08/11/23 12:20 08/11/23 12:30 08/11/23 12:31 Temperature 97.1 F L Pulse Rate 70 77 Pulse Rate [Pulse Oximeter] 67 Respiratory Rate 18 Blood Pressure 128/68 Blood Pressure [Le ft Upper Arm] 154/75 H Pulse Oximetry 97 97 96 [facility] 08/11/23 12:32 08/11/23 13:00 08/11/23 13:01 Temperature Pulse Rate 73 75 77 Pulse Rate [Pulse Oximeter] Respiratory Rate Blood Pressure 122/61 Blood Pressure [Le ft Upper Arm] Pulse Oximetry 96 95 96 Oxygen Delivery Ri thod 08/11/23 13:37 Temperature Pulse Rate 73 Pulse Rate [Pulse Oximeter] Respiratory Rate Blood Pressure Blood Pressure [Le ft Upper Arm] Pulse Oximetry 94 Oxygen Delivery Me thod Course Vital Signs Vital signs: Initial Vital Signs Temperature 97.1 F L 08/11/23 12:20 Temperature Source Temporal Artery Scan 08/11/23 12:20 Pulse Rate 67 08/11/23 12:20 Respiratory Rate 18 08/11/23 12:20 Blood Pressure 154/75 H 08/11/23 12:20 Blood Pressure Mean 101 08/11/23 12:20 Blood Pressure Position Supine 08/11/23 12:20 Pulse Oximetry 97 08/11/23 12:20 Oxygen Delivery Method Room Air 08/11/23 12:20 Vital Signs Temperature 97.1 F L 08/11/23 12:20 Pulse Rate 67 08/11/23 12:20 Respiratory Rate 18 08/11/23 12:20 Blood Pressure 154/75 H 08/11/23 12:20 Pulse Oximetry 97 08/11/23 12:20 Oxygen Delivery Method Room Air 08/11/23 12:20 Temperature 97.1 F L 08/11/23 12:20 Pulse Rate 73 08/11/23 13:37 Respiratory Rate 18 08/11/23 12:20 Blood Pressure 122/61 08/11/23 13:01 Pulse Oximetry 94 08/11/23 13:37 Oxygen Delivery Method Room Air 08/11/23 12:20 Medications Administered Medications: Discontinued Medications Generic Name Dose Route Start Last Admin Trade Name Freq PRN Reason Stop Dose Admin Aspirin 162 mg 08/11/23 13:00 08/11/23 13:35 Aspirin 81 Mg Tab.Chew PO 08/11/23 13:01 162 mg ONCE ONE Administration Medical Decision Making [facility] Narrative Medical decision making narrative: This patient presents to the ER today for evaluation of chest pain. He actually had 2 episodes of chest pain sometime last week but has not had any chest pain since at least last Monday, a week ago. He came to the ER today because he had sent a message to his sap project manager last week and finally had a response today, telling him to come to the ER.. Differential was broad. No evidence of palpitations, syncope or other cardiac dysrhythmia. We considered possible ACS, however workup with EKG and troponin is negative. Given time since onset of symptoms, I do not think the patient needs to be admitted for further sets of enzymes. Discussed with cardiology from [facility]. They indicate that with negative troponin, nonischemic EKG, and no active chest pain or anginal symptoms for a week he is safe to discharge home and they will have a follow-up expeditiously in their clinic. They will arrange further testing with stress test. EKG shows no evidence for pericarditis. Clinical presentation not suggestive of myocarditis. Chest x-ray shows no evidence for pneumonia, pneumothorax, pulmonary edema, pleural effusion, rib fracture, cardiomegaly. Mediastinum is normal on the x-ray. The patient has no ripping or tearing pain through to the back and has symmetric pulses on exam, no other acute neuro findings so I doubt aortic dissection. Risk of radiation and contrast exposure would outweigh the benefit of CT angiogram. We considered PE for this patient. However with no hypoxia, tachycardia and no active chest pain for a week, not indicative of PE. Would hold off on further workup No wheezing or bronchospasm to suggest COPD/asthma. No signs of chest wall cellulitis, shingles, injury. Patient does have a history of GERD. We discussed that the differential diagnosis for his pain would include esophageal spasm but at this point we still need to do proper cardiac workup before we assume that these were spasms. He understands the vital need for outpatient follow-up. With reasonable clinical confidence, I think the patient is safe for outpatient follow up. Discussed return precautions. In particular he is instructed to take nitro and come right back to the ER if he has any more chest pain (and not wait for outpatient follow-up with his cardiology). Questions answered. Patient voices comfort with the plan. Lab Data Labs: Lab Results 08/11/23 Range/Units 12:42 WBC 5.48 (4.50-11.00) K/uL RBC 4.35 (4.30-5.90) m/uL Hgb 13.7 (13.5-17.5) gm/dL Hct 40.6 (37.0-53.0) % MCV 93 (80-100) fL MCH 32 (26-34) pg MCHC 34 (32-36) gm/dL RDW Coeff of [place] 12.2 (11.5-15.5) % Plt Count 153 (140-440) K/uL Neut % (Auto) 64.2 (42.0-72.0) % Lymph % (Auto) 25.2 (20-44) % [place] % (Auto) 9.1 (0.0-11.0) % Eos % (Auto) 1.1 (0.0-7.0) % Baso % (Auto) 0.4 (0.0-3.0) % Neut # (Auto) 3.52 (1.7-7.0) K/uL Lymph # (Auto) 1.38 (0.90-2.90) K/uL [place] # (Auto) 0.50 (0.00-0.90) K/UL Eos # (Auto) 0.06 (0.00-0.50) K/uL Baso # (Auto) 0.02 (0.00-0.30) K/uL Abs Immat Gran (auto) 0.00 (0.00-0.30) K/uL Imm/Tot Granulo (auto) 0.0 % Sodium 140 (135-149) mmol/L Potassium 4.4 (3.6-5.1) mmol/L Chloride 107 (96-114) mmol/L Carbon Dioxide 29 (20-32) mmol/L Anion Gap 4 L (7-15) mEq/L BUN 20 (7-30) mg/dL Creatinine 1.1 (0.5-1.5) mg/dL Estimated Creat Clear 49.24 Estimated GFR 67 ml/min Glucose 78 (60-115) mg/dL Calcium 9.7 (8.4-10.6) mg/dL Troponin I < 0.01 L (0.01-0.04) ng/mL Imaging Data Chest x-ray: Attestation: I have reviewed the pertinent imaging results. Radiologist's impression: Findings/Impression: Cardiovascular and mediastinum: Normal heart size with atherosclerotic calcification. Lungs and pleural spaces: Mild hyperinflation without pleural effusion or pneumothorax. No focal consolidation. Bones and soft tissues: Old compression fracture midthoracic spine. ECG Data Attestation: I personally reviewed and interpreted this ECG as follows: Interpretation: Normal sinus rhythm rate 70 CO 198 QRS axis left axis deviation. No pathologic Q-waves. ST segment/T wave: No ST segment elevation or depression. QTc: 416 Discharge Plan Discharge Clinical Impression: Chest pain Patient Disposition: Home, Self-Care Condition: Stable Instructions: Chest Pain (ED) Additional Instructions: Please call your sap project manager on Monday to arrange a follow-up appointment. They will give you further direction about stress testing or further testing for your heart. If you have any more episodes of chest pain, use your nitro as you have been, and come back to the ER right away to be rechecked. If you have any other concerning symptoms such as episodes of dizziness or fainting, trouble breathing, sweatiness, come back to the ER right away. Prescriptions: No Action meclizine 25 mg tablet 25 mg PO TID PRNQty: 15 0RF hydroxyzine HCl 25 mg tablet PO alendronate 70 mg tablet 70 mg PO Patient Comments: TAKE 1 TABLET BY MOUTH ONCE PER WEEK IN THE MORNING. TAKE ON AN EMPTY STOMACH WITH A FULL GLASS OF WATER. DO NOT LIE DOWN FOR 1 HOUR. trazodone 100 mg tablet losartan 25 mg tablet metoprolol succinate 25 mg tablet extended release 24 hr PO rosuvastatin 20 mg tablet sildenafil [Viagra] 50 mg tablet 50 mg PO DAILY PRN Rx Instructions: administer 30 minutes to 4 hours before activity Follow Up/Referrals: Ann Ramirez PA-C [Primary Care Provider] - Stand Alone Forms: [employer] Info Instructions
--- NOTE | 2023-08-11 12:36 | XR_ITS ---
Patient: ADONIS KINGJR. Facility:?[facility] Patient ID:?[id number] Site Patient ID:?[id number]. Site :?[id number] Study:?XRay-Chest PA & LAT-08/11/2023 1:17:03 PM Ordering Physician:ADE Final Report: Indication: Chest pain Technique: Chest 2 views Comparison: Chest x-ray 12/07/2021 Findings/Impression: Cardiovascular and mediastinum: Normal heart size with atherosclerotic calcification. Lungs and pleural spaces: Mild hyperinflation without pleural effusion or pneumothorax. No focal consolidation. Bones and soft tissues: Old compression fracture midthoracic spine. Dictated by Fan Manzano MD @ 08/11/2023 1:33:13 PM Signed by:?Fan Manzano MD @08/11/2023 1:33:13 PM (Electronic Signature)
[2023-08-11 12:49] LABS: Basophils Absolute Auto 0.02 K/uL (0.00-0.30); Basophils Percent Auto 0.4 % (0.0-3.0); Eosinophils Absolute Auto 0.06 K/uL (0.00-0.50); Eosinophils Percent Auto 1.1 % (0.0-7.0); Hematocrit 40.6 % (37.0-53.0); Hemoglobin* 13.7 gm/dL (13.5-17.5); Lymphocytes Absolute Auto 1.38 K/uL (0.90-2.90); Lymphocytes Percent Auto 25.2 % (20-44); Mean Corpuscular HGB Conc 34 gm/dL (32-36); Mean Corpuscular Hemoglobin 32 pg (26-34); Mean Corpuscular Volume 93 fL (80-100); Monocytes Percent Auto 9.1 % (0.0-11.0); Neutrophils Absolute Auto 3.52 K/uL (1.7-7.0); Neutrophils Percent Auto 64.2 % (42.0-72.0); Platelet Count* 153 K/uL (140-440); RDW Coefficient of Variation % 12.2 % (11.5-15.5); Red Blood Count 4.35 m/uL (4.30-5.90); White Blood Count* 5.48 K/uL (4.50-11.00)
[2023-08-11 12:58] LABS: Slide Review Reflex No
[2023-08-11 13:04] LABS: Chloride* 107 mmol/L (96-114); Potassium* 4.4 mmol/L (3.6-5.1); Sodium* 140 mmol/L (135-149)
[2023-08-11 13:06] LABS: Creatinine* 1.1 mg/dL (0.5-1.5); Est. Creatinine Clearance* 49.24; Estimated Glomerular Filt Rate 67 ml/min
[2023-08-11 13:07] LABS: Anion Gap 4 mEq/L (7-15); Blood Urea Nitrogen* 20 mg/dL (7-30); Calcium* 9.7 mg/dL (8.4-10.6); Carbon Dioxide* 29 mmol/L (20-32); Glucose* 78 mg/dL (60-115)
[2023-08-11 13:25] LABS: Troponin I* < 0.01 ng/mL (0.01-0.04)
[2023-08-11] MEDS: ASPIRIN 81 MG TAB.CHEW 162 MG PO (13:35)
== END 2023-08-11 16:20 | disposition home or self-care (01) ==
PROVIDERS: Emergency Provider Emergency Medicine; PCP Student in an Organized Health Care Education/Training Program
DX: R07.9 Chest pain, unspecified (principal)
CPT/HCPCS: 36415; 71046; 80048; 84484; 85025; 99283; 99284; A9270

== ENCOUNTER 2023-09-29 12:30 | Outpatient (RCR) | payer MEDICARE, SELFPAY | END 2024-01-27 23:59 | disposition home or self-care (01) | PROVIDERS: PCP Student in an Organized Health Care Education/Training Program; Visit Provider Surgery | DX: M54.6 Pain in thoracic spine (principal); G89.29 Other chronic pain; Z51.89 Encounter for other specified aftercare | CPT/HCPCS: 97110; 97140; 97162 ==

== ENCOUNTER 2024-11-03 11:49 | Emergency (ER) | payer MEDICARE, SELFPAY ==
--- OUTSIDE RECORDS SUMMARY | 2015-03-12 09:00 | XMS_ITS | Continuity of Care Document ---
Author Organization [facility] Address [address] [address] [place] [address] Phone Care Team Providers Care Sap Bi Architect Name Role Phone Thiago Hein MD Unavailable Unavailable Medications Medication Instructions Dosage Effective Dates (start - stop) Status Comments trazodone 50 mg tablet take 1 tablet by ORAL route every day at bed time 50 MG - Active metoprolol succinate ER 25 mg tablet,extended release 24 hr take 0.5 Milligram by ORAL route every evening 12.5 MG - Active aspirin 81 mg chewable tablet chew 1 tablet by oral route every day 81 MG - Active simvastatin 10 mg Tab take 1 tablet (10MG) by oral route every day in the evening 10 MG - Active bupropion HCl XL 300 mg 24 hr Tab take 1 tablet (300MG) by oral route every day 300 MG - Active VIAGRA (unknown strength) as needed Not Available - Active Procedures Procedure Date Colonoscopy Flex; W/remov Les- 15 Colonoscopy Flex; W/bx 1/mx Level Iv-surg Path Gross/micro 15 Colonoscopy Flex; Dx (sep Pro) 11 Colonoscopy Flex; W/remov Les- 08 Level Iv-surg Path Gross/micro 08 Level Iv-surg Path Gross/micro 08 Advance Directives Directive Yes / No Effective Date File Name No Information Encounters Encounter Description Practice Location Reason(s) For Visit Diagnoses Date Provider Providers Copied on Encounter [facility], [address] [address], [place], [id number], [place] tel:[phone] [facility] No Information Melvina Das. [address] [facility], [address], [id number], [place]. tel:[phone] [facility], [address] [address], [place], [id number], [place] tel:[phone] [facility] Colon polypsAngiecta siaEncounter for screening for malignant neoplasm of colonBenign neoplasm of ascending colonBenign neoplasm of descending colonPersonal history of colonic polypsPersonal history of colonic polyps Melvina Das. [address] [place] [address], [id number], [place]. tel:[phone] Referring Provider: Wang Charles, [address] [place], [address]. tel:[phone] [facility], [address] [address], [place], [id number], [place] tel:[phone] [facility] AVM W/o BleedAVM W/o BleedPersonal History Colon PolypsIron Deficiency Anemia No Information Referring Provider: Sunday Alonso MD R, [address] [place], [address]. tel:[phone] [facility], [address] [address], [place], [id number], [place] tel:[phone] [facility] No Information No Information [facility], [address] [address], [place], [id number], [place] tel:[phone] [facility] Colon Cancer ScreeningAVM W/o BleedRectal Polyp/BenignBe nign Neoplasm Lg Bowel Melvina Das. [address] [facility], [facility] [address], [place], [id number], [place]. tel:[phone] Referring [place]: [place], [address] [place], [address]. tel:[phone] Family History Family Member Type Diagnosis Age At Onset Son Problem (finding) Alive and well Sister Problem (finding) Alive and well Father Problem (finding) Mother Problem (finding) Hepatitis Father Problem (finding) malignant neoplasm of s kin Mother Problem (finding) malignant neoplasm of k idney Mother Problem (finding) Payers Payer name Insurance type Covered constitution party ID Authoriza tion(s) Blue Cross [place] Blue BL [id number] Social History Type Description Quantity Date Captured Comments Alcohol Use Details Unknown Caffeine Use Details Unknown Tobacco Use Status No Information Smoking Status No Information Sex Male Chief Complaint And Reason For Visit No Information Reason For Referral Reason For Referral No Information History Of Present Illness Encounter Date Complaint History Of Prese nt Illness No Information Functional Status Date Functional Assessmen t No Information Instructions Date Instruction Additional Infor mation Colon Polyps Related to Colon polyps Colon Cancer Prevention Related to Colon polyps Assessments Type Assessment Date No Information Patient Care Teams Name Effective Dates (start - stop) Status Members No Information
--- OUTSIDE RECORDS SUMMARY | 2015-03-12 09:00 | XMS_ITS | Continuity of Care Document ---
Author Organization [facility] Address [address] [address] [place] [address] Phone Care Team Providers Care Wrist Hemmer Name Role Phone Thiago Hein MD Unavailable [...] Encounter [facility], [address] [address], [place], [id number], [place] tel:[phone] [facility] No Information Melvina Das. [address] [facility], [address], [id number], [place]. tel:[phone] [facility], [address] [address], [place], [id number], [place] tel:[phone] [facility] Colon polypsAngiecta siaEncounter for screening for malignant neoplasm of colonBenign neoplasm of ascending colonBenign neoplasm of descending colonPersonal history of colonic polypsPersonal history of colonic polyps Melvina Das. [address] [place] [address], [id number], [place]. tel:[phone] Referring Provider: Wang Charles, [address] [place], [address]. tel:[phone] [facility], [address] [address], [place], [id number], [place] tel:[phone] [facility] AVM W/o BleedAVM W/o BleedPersonal History Colon PolypsIron Deficiency Anemia No Information Referring Provider: [place] R, [address] [place], [address]. tel:[phone] [facility], [address] [address], [place], [id number], [place] tel:[phone] [facility] No Information No Information [facility], [address] [address], [place], [id number], [place] tel:[phone] [facility] Colon Cancer ScreeningAVM W/o BleedRectal Polyp/BenignBe nign Neoplasm Lg Bowel Melvina Das. [address] [facility], [facility] [address], [place], [id number], [place]. tel:[phone] Referring [place]: [place], [address] [place], [address]. tel:[phone] Family History Family Member Type Diagnosis Age At Onset Son Problem (finding) Alive and well Sister Problem (finding) Alive and well Father Problem (finding) Mother Problem (finding) Hepatitis Father Problem (finding) malignant neoplasm of s kin Mother Problem (finding) malignant neoplasm of k idney Mother Problem (finding) Payers Payer name Insurance type Covered democrat ID Authoriza tion(s) Blue Cross [place] Blue BL [id number] Social History Type Description Quantity Date Captured [...]
[2024-11-03] VITALS (11 sets, daily range): BP systolic 117; BP diastolic 68; PULSE 54–75; RESP 12–20; TEMP 36.4; O2SAT 94–97; BMI 25.6
--- OUTSIDE RECORDS SUMMARY | 2024-11-03 11:51 | XMS_ITS | Clinical Summary ---
Author Organization [employer] [facility] Address [address] [place] [id number] Care Team Providers Care Edi Specialist Name Role Phone Wang Coppola MD Primary Care Provider [phone]- [phone] Lorrie Mcginnis MD Unavailable [phone] Allergies No known active allergies Medications multivitamin (MVI) tablet Take 2 tablets by mouth once daily. 0 016 Active zinc 15 mg tablet Take 15 mg by mouth once daily. 0 017 Active calcium carbonate (CALCIUM 600) 600 mg calcium (1,500 mg) tablet Take 1,200 mg by mouth once daily. Active aspirin chewable 81 mg chewable tabletIndications:NSTE VA (non-ST elevated myocardial infarction) (HC) Take 1 tablet by mouth once daily. 30 tablet 021 Active nitroglycerin (NITROSTAT) 0.4 mg sublingual tabletIndications:NSTE VA (non-ST elevated myocardial infarction) (HC) PLACE 1 TABLET(0.4MG) UNDER THE TONGUE EVERY 5 MINUTES NEEDED FOR CHEST PAIN. 25 Tablet 024 Active buPROPion (WELLBUTRIN XL) 300 mg Extended-Release tabletIndications:Pers istent depressive disorder Take 1 Tablet (300 mg) by mouth once daily in the morning. 90 Tablet 3 024 Active traZODone (DESYREL) 100 mg tabletIndications:Inso mnia, unspecified type Take 1-2 Tablets (100-200 mg) by mouth at bedtime. 180 Tablet 3 Active alendronate (FOSAMAX) 70 mg tabletIndications:Oste oporosis with current pathological fracture, unspecified osteoporosis type, initial encounter (HC) As directed 1 Tablet (70 mg) once a week in the morning. Take on empty stomach with full glass of water. Do not lie down for 1 hr. 13 Tablet 3 024 Active rosuvastatin (CRESTOR) 40 mg tabletIndications:Pure hypercholesterolemia Take 1 Tablet (40 mg) by mouth once daily with evening meal. 90 Tablet 3 024 Active metoprolol succinate (TOPROL XL) 25 mg Sustained-Release tabletIndications:Palp itations Take 0.5 Tablets (12.5 mg) by mouth once daily. 45 Tablet 2 Active tamsulosin (Flomax) 0.4 mg capsuleIndications:Low er urinary tract symptoms (LUTS) Take 1 Capsule (0.4 mg) by mouth once daily after a meal. 90 Capsule 3 Active Additional Information Patient not taking.Reported on 10/24/2024 sildenafil citrate (SILDENAFIL ORAL) Take by mouth. Active gabapentin 300 mg capsuleIndications:Her pes zoster without complication Take 1 Capsule (300 mg) by mouth at bedtime. 60 Capsule Active oxyCODONE-acetaminophe n (Percocet) 5-325 mg per tabletIndications:Herp es zoster without complication Take 1 Tablet by mouth every 4 hours if needed for Pain. Max acetaminophen dose: 4000mg in 24 hrs. 10 Tablet Active Additional Information Patient not taking.Reported on 10/24/2024 losartan 50 mg tabletIndications:Hype rtension Take 1 Tablet (50 mg) by mouth once daily. 90 Tablet 3 Active losartan (COZAAR) 25 mg tabletIndications:NSTE VA (non-ST elevated myocardial infarction) (HC) Take 1 Tablet (25 mg) by mouth once daily. 90 Tablet 3 024 2024 Discontin ued(*Medi cation adjustmen t) valACYclovir 1 gram tabletIndications:Herp es zoster without complication Take 1 Tablet (1 g) by mouth three times daily for 7 days. 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 Recommended recheck in 2 years. 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 [address] [place] [address] Brittany Mcdonald, Medication Management (Shingles medication) 10/24/2024 12:00 PM CDT Office Visit [facility] [address] [place] [address] Lorrie Mcginnis MD Follow Up (Discuss biopsy results) 10/24/2024 Travel 10/22/2024 2:00 PM CDT Office Visit [facility] [address] [place] [phone] Lakeisha Mack MD Follow Up (Follow up dyspnea on exertion, review echocardiogram 10/15/2024 - yearly visit ) 10/22/2024 Travel 10/21/[address] [facility] [address] [facility] [place] [address] Brittany Mcdonald DO Follow Up 10/18/2024 1:25 PM CDT Office Visit [facility] [address] [place] [address] Brittany Mcdonald DO Derm Problem (spots left arm- painful 2-3 days); Shingles (possible) 10/18/2024 Travel 10/14/2024 2:00 PM CDT Ancillary Procedure [facility] [address] [facility] [place] [address] 10/14/2024 Travel 09/25/[address] [facility] [address] [facility] [place] [address] Wang Coppola MD Results (Patient requesting results) 09/24/[address] [facility] [address] [facility] [place] [address] Wang Coppola MD Health Maintenance Update 09/19/2024 8:00 AM CDT Office Visit [address] [address] Lorrie Mcginnis MD Procedure (Prostate Biopsy) 09/19/2024 Travel 09/16/[address] [facility] [address] [place] [address] Wang Coppola MD Questions (biopsy question) 08/29/2024 1:45 PM CDT Orders Only [address] [place] [address] [facility] 08/29/2024 Travel from Last 3 Months Immunizations Immunization Administration Dates Next Due COVID-19 vaccine (Moderna 100mcg/0.5mL) RICHARD COUCH 07/31/2020,07/03/2020 Influenza Virus, Unspecified 05/17/2012 Influenza, High-dose Inactivated 024,03/25/2019,04/10/2018,02/14,07/02/2015,04/08/2014 Influenza, High-dose Quadriv alent Inactivated 03/23/2022,02/05/2020 Influenza, IIV3 (Age >=3 years) 05/24/2006 Influenza, Inactivated AIIV4 (Age 65+ Years) Preserv Free 03/14/2023,04/13/2021 Influenza, Inactivated IIV3 (Age 65+ Years) Preserv Free 04/10/2018,01/24/2017 Pneumococcal Poly,23-Valent (Pneumovax) 12/02/2010 Pneumococcal conj 13-Valent (Prevnar 13) 07/20/2015 RSV, Recombinant ADJ Reconst ituted (Arexvy 120MCG/0.5mL) 05/17/2023 Td (Age >=7 Years) 08/05/2006,05/27/2004 Td, Preservative Free (age >= 7 Years) 7,05/27/2004 Zoster (Shingrix-RZV, recombinant) 08/25/2021, Zoster (Zostavax-ZVL, live) 10/11/2014 Family History Medical History Relation Name Comments Heart Disease Father [facility] @ 71 Psychiatric illness Maternal Uncle matern al uncle committed suicide Depression Mother Premature CHD (under age 60) Mother [facility] @ 42 Heart Disease Paternal Grandmother Depression Sister sister is antid epressants Relation Name Status Comments Father Maternal Uncle Mother Paternal Grandmother Sister Social History Tobacco Use Types Packs/Day Years Used Date Smoking Tobacco: Never Passive Smoke Exposure: Never Smokeless Tobacco: Never Tobacco Cessation:Counseling Given: Yes Alcohol Use Standard Drinks/Week Comments Yes 3 (1 standard drink = 0.6 oz pur e alcohol) once a week or less PHQ-2 Answer Date Recorded PHQ-2 TOTAL SCORE 2 03/29/2024 Social Connections Answer Date Recorded Do you often feel lonely or isolated from those around you? 0 10/18/2024 Financial Resource Strain Answer Date R ecorded Difficulty of Paying Living Expenses 3 10/18/2024 Difficulty of Paying Living Expenses Not on file 10/18/2024 Food Insecurity Answer Date Recorded Do you worry your food will run out before you are able to buy more? 1 10/18/2024 Transportation Needs Answer Date Record ed Does lack of transportation keep you from medica l appointments? 1 10/18/2024 Does lack of transportation keep you from work, meetings or getting things that you need? 1 10/18/2024 Housing Stability Answer Date Recorded What is your housing situation today? 1 10/18/2024 Utilities Answer Date Recorded Do you have trouble paying f or utilities (for example, heat, electricity, water, phone)? 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 Gender Identity Not on file Sexual Orientation Not on file Obstetrics History Last Filed Vital Signs Vital Sign Reading Time Taken Comments Blood Pressure 120/62 10/24/2024 12:24 PM CDT Pulse 62 10/24/2024 12:24 PM CDT Temperature 36.8 C (98.3 F) 10/18/2024 1:24 PM CDT Respiratory Rate 16 09/19/2024 8:17 AM CDT Oxygen Saturation 96% 10/22/2024 2:04 PM CDT Inhaled Oxygen Concentration - - Weight 73.5 kg (162 lb 1.6 oz) 10/24/2024 12:24 PM CDT Height 165.1 cm (5' 5) 03/29/2024 1:46 PM 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 Office Visit [address] [place] [phone] Lorrie Mcginnis MD [address] [place] [address] Health Maintenance Due Date Last Done Comments Tdap 1951 Tetanus booster 10/13/2016 10/13/2006, 07/14, 05/27/2004, Additional history exists COVID-19 vaccine series (10 - Moderna risk season) 2024 02/27/2024, 07/27/2023, 03/14/2023, Additional history exists BMI (ht and wt on same day) for age 18+ 03/29/2025 03/29/2024, 02/01/2024, 04/20/2023, Additional history exists Medicare Wellness for age 65+ 03/30/2025 03/29/2024, 04/20/2023, 10/15/2021, Additional history exists Depression screening for age 12+ 04/02/2025 04/02/2024, 03/29/2024, 02/22/2024, Additional history exists Pneumococcal series for age 50+ Completed 07/20/2015, 12/02/2010 Zoster (shingles) series for age 50+ Completed 08/25/2021, 05/09/2021, 10/11/2014 RSV vaccine for adults or Completed 05/17/2023 Influenza Vaccine Completed 02/27/2024, , 04/13/2021, Additional history exists Hepatitis B series for 19+ Aged Out N o longer eligible based on patient's age to complete this topic Medical Devices Implanted Type Area Acute Care Physician Device Identifier Shelf Expiration Date Model / Serial / Lot Iol Stigma +21 Delfin [id number] - [id number] Implanted:Qty: 1 on 12/21/2022 by Edwin Santamaria MD at [facility] Right: Eye [employer] 07/08/2027 [id number] / [id number] / Procedures Procedure Name Priority Date/Time Associated Diagnosis Comments ECHO TTE COMPLETE WO CONTRAST Routine 10/14/2024 2:59 PM CDT Dyspnea on exertion PATH TISSUE EXAM Routine 09/19/2024 8:50 AM CDT Elevated PSA PSA TOTAL Routine 08/29/2024 2:31 PM CDT Elevated PSA from Last 3 Months Results * ECHO TTE COMPLETE WO CONTRAST (10/14/2024 2:59 PM CDT) AORTIC VALVE MEAN PG 10 mmHg EJECTION FRACTION 58 % PEAK TR VELOCITY 2.6 m/s LVEDD 4.2 cm Anatomical Region Laterality Modality Ultrasound 10/14/2024 2:11 PM CDT Narrative 10/14/2024 3:38 PM CDT ECHOCARDIOGRAM ELLE POLK : 1940 83 years Study Date: 10/14/2024 2:11:10 PM Gender: M BP: 127/58 mmHg Height: 165.00 cm BSA: 1.81 m Weight: 74.00 kg Tech: RONI Referring MD: LAKEISHA MACK Site: [place] Location: [facility] Patient Location: Outpatient. Procedure: 2D, Color Doppler and Spectral Doppler. Indication for study: NAVA Cardiac Rhythm: Regular.Study quality: Fair. Final Impressions: 1. Normal left ventricular size, mildly increased wall thickness, normal global systolic function, calculated EF of 58 %. 2. Right ventricular cavity size is normal, global systolic RV function is normal. 3. The aortic valve is calcified, no stenosis and mild regurgitation. 4. Normal estimated pulmonary pressures by tricuspid regurgitation velocity and right atrial pressure (26 mmHg plus RAP). 5. Borderline ascending aorta, diameter of 4.3 cm (upper limit of normal for age, sex, and BSA is 4.3 cm*), Height Index 2.61. 6. Dilated sinus of Valsalva, diameter of 4.2 cm (upper limit of normal for age, sex, and BSA is 4.1 cm*), Height Index 2.52 cm/m. Comparison Compared to prior exam of 09/21/2023, there has been no significant change. Chamber Sizes and Function Normal left ventricular size, mildly increased wall thickness, normal global systolic function, calculated EF of 58 %. No resting regional wall motion abnormality visualized. Left atrial size is normal. Right ventricular cavity size is normal, global systolic RV function is normal. RV wall thickness is normal. The right atrium is normal. Right atrial volume index is 16 ml/m . The pulmonary artery is of normal size and origin. The sinus of Valsalva is dilated. The ascending aorta is borderline. Valves, RV Pressures and Diastolic Function The aortic valve is calcified, no stenosis and mild regurgitation. The mitral valve is sclerotic, trace mitral regurgitation. Spectral Doppler shows Grade 1 pattern of LV diastolic filling. The tricuspid valve is normal in structure, trace tricuspid regurgitation. The tricuspid regurgitant velocity is 2.6 m/s, the estimated right ventricular systolic pressure is 26 mmHg plus right atrial pressure. There is normal estimated pulmonary pressure by tricuspid regurgitation velocity and right atrial pressure. The pulmonic valve is normal. Trace pulmonary regurgitation. Masses, Effusion, Shunts There is no pericardial effusion. The inferior vena cava is normal sized, respiratory size variation greater than 50%. No left to right shunting was detected by limited color flow Doppler interrogation of the interatrial septum. MEASUREMENTS AND CALCULATIONS 2-D Measurements and LV Function: LVID (d) 4.2 cm Planimetered EF 58 % LVID (s) 2.9 cm LV FS% (2D) 30 % IVS (d) 1.3 cm LVOT diameter 2.6 cm LVPW (d) 1.3 cm HR 58 bpm Ao Sinus 4.2 cm LA Vol index 33 ml/m2 Ao Sinus ULN 4.1 cm * RA Vol index 16 ml/m2 Asc Ao 4.3 cm RV Basal Diam 3.8 cm Asc Ao ULN 4.3 cm * RV Mid Diam 3.2 cm * Input age outside of range, reported values correspond to Age = 81 Diastology: Mitral Tissue Doppler E Peak 0.7 m/s e', Septum 0.06 m/s A Peak 0.9 m/s e', Lateral 0.08 m/s E/A 0.8 E/e' Average 10.94 DT 240 msec Aortic Valve: Vmax 1.9 m/s DALIA (V) 2.88 cm AI P 1/2 600 msec VTI 0.46 m DALIA (I) 3.01 cm LVOT V max 1.1 m/s Max PG 15 mmHg LVOT VTI 0.27 m Mean PG 10 mmHg SV 140 ml Dim Index 0.59 SV index 77 ml/m CO 8.1 l/min CI 4.5 l/min/m Mitral Valve: MVA 3.2 cm MV P 1/2 70 msec Tricuspid Valve and estimated PA pressures: TR Vmax 2.6 m/s TAPSE 1.9 cm TR maxG 26 mmHg Pulmonic Valve: PV Vmax 0.9 m/s . This study was interpreted by an [facility] accredited facility. Final Procedure Note Adolfo Kaminski MD - 10/15/2024 ECHOCARDIOGRAM ELLE POLK : 1940 83 years Study Date: 10/14/2024 2:11:10 PM Gender: M BP: 127/58 mmHg Height: 165.00 cm BSA: 1.81 m Weight: 74.00 kg Tech: [facility] Referring MD: LAKEISHA MACK Site: [place] Location: [facility] Patient Location: Outpatient. Procedure: 2D, Color Doppler and Spectral Doppler. Indication for study: NAVA Cardiac Rhythm: Regular.Study quality: Fair. Final Impressions: 1. Normal left ventricular size, mildly increased wall thickness, normalglobal systolic function, calculated EF of 58 %. 2. Right ventricular cavity size is normal, global systolic RV functionis normal. 3. The aortic valve is calcified, no stenosis and mild regurgitation. 4. Normal estimated pulmonary pressures by tricuspid regurgitationvelocity and right atrial pressure (26 mmHg plus RAP). 5. Borderline ascending aorta, diameter of 4.3 cm (upper limit of normalfor age, sex, and BSA is 4.3 cm*), Height Index 2.61. 6. Dilated sinus of Valsalva, diameter of 4.2 cm (upper limit of normalfor age, sex, and BSA is 4.1 cm*), Height Index 2.52 cm/m. Comparison Compared to prior exam of 09/21/2023, there has been no significantchange. Chamber Sizes and Function Normal left ventricular size, mildly increased wall thickness, normalglobal systolic function, calculated EF of 58 %. No resting regional wallmotion abnormality visualized. Left atrial size is normal. Rightventricular cavity size is normal, global systolic RV function is normal.RV wall thickness is normal. The right atrium is normal. Right atrialvolume index is 16 ml/m . The pulmonary artery is of normal size andorigin. The sinus of Valsalva is dilated. The ascending aorta isborderline. Valves, RV Pressures and Diastolic Function The aortic valve is calcified, no stenosis and mild regurgitation. Themitral valve is sclerotic, trace mitral regurgitation. Spectral Dopplershows Grade 1 pattern of LV diastolic filling. The tricuspid valve isnormal in structure, trace tricuspid regurgitation. The tricuspidregurgitant velocity is 2.6 m/s, the estimated right ventricular systolicpressure is 26 mmHg plus right atrial pressure. There is normal estimatedpulmonary pressure by tricuspid regurgitation velocity and right atrialpressure. The pulmonic valve is normal. Trace pulmonary regurgitation. Masses, Effusion, Shunts There is no pericardial effusion. The inferior vena cava is normal sized,respiratory size variation greater than 50%. No left to right shunting wasdetected by limited color flow Doppler interrogation of the interatrialseptum. MEASUREMENTS AND CALCULATIONS 2-D Measurements and LV Function: LVID (d) 4.2 cm Planimetered EF 58% LVID (s) 2.9 cm LV FS% (2D) 30% IVS (d) 1.3 cm LVOT diameter2.6 cm LVPW (d) 1.3 cm HR 58bpm Ao Sinus 4.2 cm LA Vol index 33ml/m2 Ao Sinus ULN 4.1 cm * RA Vol index 16ml/m2 Asc Ao 4.3 cm RV Basal Diam3.8 cm Asc Ao ULN 4.3 cm * RV Mid Diam3.2 cm * Input age outside of range, reported values correspond to Age = 81 Diastology: Mitral Tissue Doppler E Peak 0.7 m/s e', Septum 0.06 m/s A Peak 0.9 m/s e', Lateral 0.08 m/s E/A 0.8 E/e' Average 10.94 DT 240 msec Aortic Valve: Vmax 1.9 m/s DALIA (V) 2.88 cm AI P 1/2 600 msec VTI 0.46 m DALIA (I) 3.01 cm LVOT V max 1.1 m/s Max PG 15 mmHg LVOT VTI 0.27 m Mean PG 10 mmHg SV 140 ml Dim Index 0.59 SV index 77 ml/m CO 8.1 l/min CI 4.5 l/min/m Mitral Valve: MVA 3.2 cm MV P 1/2 70 msec Tricuspid Valve and estimated PA pressures: TR Vmax 2.6 m/s TAPSE 1.9 cm TR maxG 26 mmHg Pulmonic Valve: PV Vmax 0.9 m/s . This study was interpreted by an [facility] accredited facility. Final [facility] Tommy Mack MD ECHO ORD Final Result * PATH TISSUE EXAM (09/19/2024 8:50 AM CDT) Case Report Pathology Report Case: [id number] Authorizing Provider: Lorrie Mcginnis MD Collected: 09/19/2024 0850 Ordering Location: [facility] Received: 09/19/2024 1130 Clinic Pathologist: Hernesto Herrera MD Specimens: A) - Right Lateral Base Prostate Needle Biopsy B) - Right Prostate Needle Biopsy C) - Left Lateral Base Prostate Needle Biopsy D) - Left Prostate Needle Biopsy 09/23/2024 11:02 AM CDT [facility] Final Diagnosis A) PROSTATE, RIGHT LATERAL BASE, NEEDLE CORE BIOPSIES: 1. Prostatic tissue without evidence of neoplasm 2. No atypical foci, high grade prostatic intraepithelial neoplasia, or malignancy B) PROSTATE, RIGHT, NEEDLE CORE BIOPSIES: 1. Prostatic tissue without evidence of neoplasm 2. No atypical foci, high grade prostatic intraepithelial neoplasia, or malignancy C) PROSTATE, LEFT LATERAL BASE, NEEDLE CORE BIOPSIES: 1. 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 Total surface area involved: 5% 3. Number of needle biopsy cores involved: 2 of 4 4. Perineural invasion: Absent D) PROSTATE, LEFT, NEEDLE CORE BIOPSIES: 1. Prostatic tissue without evidence of neoplasm 2. No atypical foci, high grade prostatic intraepithelial neoplasia, or malignancy 09/23/2024 11:02 AM CDT [facility] at 1102 CDT Comment Case seen in consultation with Dr. Keith. 09/23/2024 11:02 AM CDT [facility] Clinical Information Elevated PSA 09/23/2024 11:02 AM CDT [facility] Gross Description A) Received in formalin labeled with the patient's name and right lateral base prostate needle biopsy, are 3, 1.2, 1.0 and 1.0 cm in length by 0.1 cm in diameter needle core biopsy of chan delicate tissue which is inked BLACK and submitted entirely in cassette A1. B) Received in formalin labeled with the patient's name and right prostate needle biopsy, are 5, 0.5, 0.6, 0.8, 0.7 and 1.1 cm in length by 0.1 cm in diameter needle core biopsy of chan delicate tissue which is inked BLACK and submitted entirely in cassette B1. C) Received in formalin labeled with the patient's name and left lateral base prostate needle biopsy, are 4, 0.5, 0.7, 1.0 and 1.1 cm in length by 0.1 cm in diameter needle core biopsy of chan delicate tissue which is inked BLACK and submitted entirely in cassette C1. D) Received in formalin labeled with the patient's name and left prostate needle biopsy, are 3, 0.8, 1.1 and 1.2 cm in length by 0.1 cm in diameter needle core biopsy of chan delicate tissue which is inked BLACK and submitted entirely in cassette D1. 09/23/2024 11:02 AM T [facility] Microscopic Description The final diagnosis is based on microscopic examination of appropriate sections of all specimens. A-D) The presence of black ink is confirmed on tissue sections. The final diagnosis is based on microscopic examination of appropriate sections of all specimens. 09/23/2024 11:02 AM T [facility] Additional [facility] - [address] [place] [address] S. [facility] [address], [place] [address] 09/23/2024 11:02 AM T [facility] Other (Right Lateral Base Prostate Needle Biopsy) Non-Blood / Unknown 09/19/2024 8:50 AM CDT 09/19/2024 11:30 AM CDT Specimen (specimen) (Right Prostate Needle Biopsy) Non-Blood / Unknown 09/19/2024 8:50 AM CDT 09/19/2024 11:30 AM CDT Specimen (specimen) (Left Lateral Base Prostate Needle Biopsy) 09/19/2024 8:50 AM CDT 09/19/2024 11:30 AM CDT Specimen (specimen) (Left Prostate Needle Biopsy) 09/19/2024 8:50 AM CDT 09/19/2024 11:30 AM CDT Lorrie Mcginnis MD PATHOLOGY/CYTOLOGY Final Resul t Performing Organization Address City/[facility] Co de Phone Number [facility] [address] [place] [phone], * (ABNORMAL) PSA TOTAL (08/29/2024 2:31 PM CDT) PSA, TOTAL 7.29(H) < OR = 4.00 ng/mL [facility] Comment: The total PSA value from this assay system is standardized against the WHO standard. The test result will be approximately 20% lower when compared to the equimolar-standardized total PSA (Sloan Sumit). Comparison of serial PSA results should be interpreted with this fact in mind. This test was performed using the Siemens chemiluminescent method. Values obtained from different assay methods cannot be used interchangeably. PSA levels, regardless of value, should not be interpreted as absolute evidence of the presence or absence of disease. Blood BLOOD SPECIMEN / Unknown 08/29/2024 2:31 PM CDT 08/29/2024 2:31 PM CDT Alexi CAVAZOS CHEMISTRY Final Res ult Performing Organization Address City/[facility] Co de Phone Number [employer] [facility] [address] [place] [address], [employer] [facility] [address] [place] [address] from Last 3 Months Insurance MEDICARE PART A HB ONLY [employer] [facility] [employer] MR Advance Directives * Full Code (Latest Code Status on File) Date Activated Date Inactivated Comments 12/21/2022 1:49 PM 12/21/2022 6:03 PM Question Answer Comments Code Status Discussion: Reviewed Preferences * Full Code Date Activated Date Inactivated Comments 07/16/2020 8:36 PM 07/18/2020 5:32 PM Question Answer Comments Code Status Discussion: Discussed Care Teams Edi Specialist Relationship Specialty Start Date End Date Wang Coppola MD [address] [place] [address] PCP - General Family Practice 12/30/14 Lorrie Mcginnis MD [address] [place] [id number] Surgery - Urology 09/19/24
--- NOTE | 2024-11-03 12:39 | CRLHL7_ITS ---
For Patients: As a result of the Cures Act, medical imaging exams and procedure reports are released immediately into your electronic medical record. You may view this report before your referring provider. If you have questions, please contact your health care provider. INDICATION: Chest pain TECHNIQUE: Chest radiograph 2 views COMPARISON: 07/16/2020 FINDINGS: Mediastinum: The mediastinum is normal in appearance. The heart silhouette is normal in size and morphology. Lung: Both lungs are unremarkable in appearance. No sign of pleural effusion seen. No pneumothorax is identified. Bone and Soft tissue: A chronic appearing severe compression deformity is noted in the mid thoracic spine. IMPRESSION: 1. No acute cardiopulmonary disease is seen. Dictated by: Yohan Nunes MD @ 11/03/2024 14:16:45 (Electronically Signed)
[2024-11-03] MEDS: ASPIRIN 81 MG TAB.CHEW 324 MG PO (12:51)
[2024-11-03 13:13] LABS: Basophils Absolute Auto 0.02 K/uL (0.00-0.30); Basophils Percent Auto 0.4 % (0.0-3.0); Eosinophils Absolute Auto 0.05 K/uL (0.00-0.50); Eosinophils Percent Auto 0.9 % (0.0-7.0); Hematocrit 38.1 % (37.0-53.0); Hemoglobin* 12.9 gm/dL (13.5-17.5); Lymphocytes Absolute Auto 1.26 K/uL (0.90-2.90); Lymphocytes Percent Auto 22.2 % (20-44); Mean Corpuscular HGB Conc 34 gm/dL (32-36); Mean Corpuscular Hemoglobin 32 pg (26-34); Mean Corpuscular Volume 95 fL (80-100); Monocytes Percent Auto 9.7 % (0.0-11.0); Neutrophils Absolute Auto 3.79 K/uL (1.7-7.0); Neutrophils Percent Auto 66.8 % (42.0-72.0); Platelet Count* 169 K/uL (140-440); RDW Coefficient of Variation % 13.7 % (11.5-15.5); Red Blood Count 4.02 m/uL (4.30-5.90); White Blood Count* 5.67 K/uL (4.50-11.00)
[2024-11-03 13:14] LABS: Slide Review Reflex No
[2024-11-03 13:30] LABS: Chloride* 110 mmol/L (96-114); Sodium* 140 mmol/L (135-149)
[2024-11-03 13:31] LABS: Potassium* 4.4 mmol/L (3.6-5.1)
[2024-11-03 13:33] LABS: Blood Urea Nitrogen* 20 mg/dL (7-30); Est. Creatinine Clearance* 52.33; Estimated Glomerular Filt Rate 75 ml/min
[2024-11-03 13:34] LABS: Anion Gap 6 mEq/L (7-15); Calcium* 9.2 mg/dL (8.4-10.6); Carbon Dioxide* 24 mmol/L (20-32); Glucose* 98 mg/dL (60-115)
[2024-11-03 13:35] LABS: INR 0.99 (0.91-1.10); Partial Thromboplastin Time* 24 Seconds (23-33); Prothrombin Time 13.9 Seconds
[2024-11-03 13:38] LABS: D Dimer Quantitative* 0.55 ug/ml (0.00-0.50)
--- NOTE | 2024-11-03 13:52 | ED.ARRPALP ---
HPI - Arrhythmia/Palpitations General Chief Complaint: Arrhythmia/Palpitations Stated Complaint: irregular heart beat Time Seen by Provider: 11/03/24 12:05 Source: patient Mode of arrival: ambulatory Limitations: no limitations History of Present Illness HPI narrative: Patient is an 84-year-old gentleman who presents here to the emergency room ambulatory for irregular heartbeat, he says it was resolved now, but he woken this morning with the feeling is heart is regular, says it felt like when he has gone from house to house a [place] having alcoholic drinks every house that he feels his heart skipping beats. No chest pain no shortness of breath with this. Denies any leg swelling, says he had a very small heart attack approximately 5 years ago, this is not dealt with with stenting or anything like that. He also currently has some shingles on his left arm. MD complaint: palpitations and irregular heart beat Onset (ago): hour(s) Duration: now resolved Severity: moderate Context: occurred during rest Associated symptoms: denies other symptoms Related Data Home Medications ?Medication ?Instructions ?Recorded ?Confirmed alendronate 70 mg tablet 70 mg PO 12/07/21 06/22/22 losartan 25 mg tablet 50 mg PO DAILY 12/07/21 11/03/24 metoprolol succinate 25 mg 12.5 mg PO DAILY 12/07/21 11/03/24 tablet,extended release 24 hr rosuvastatin 20 mg tablet 20 mg PO DAILY 12/07/21 11/03/24 sildenafil 50 mg tablet (Viagra) 50 mg PO DAILY PRN 12/07/21 08/11/23 trazodone 100 mg tablet 200 mg PO QPM PRN 12/07/21 11/03/24 Allergies Allergy/AdvReac Type Severity Reaction Status Date / Time No Known Drug Allergies Allergy Verified 11/03/24 12:09 Review of Systems Status of ROS: Reports: 10 or more systems reviewed and unremarkable except as noted in History and below [facility] Medical History Depression ?F32.A - Depression, unspecified (ICD-10) Ascending aorta dilatation ?I77.810 - Thoracic aortic ectasia (ICD-10) Dysthymic disorder ?F34.1 - Dysthymic disorder (ICD-10) Fall ?W19.XXXA - Unspecified fall, initial encounter (ICD-10) NSTEMI (non-ST elevated myocardial infarction) ?I21.4 - Non-ST elevation (NSTEMI) myocardial infarction (ICD-10) Social History Smoking Status: Former smoker Do you use any of these nicotine containing products: None Second hand tobacco smoke exposure: No How often do you have a drink containing alcohol: 4 or more times a week Alcohol type: beer How many standard drinks containing alcohol do you have on a typical day: 1 or 2 How often do you have six or more drinks on one occasion: Never AUDIT-C Alcohol total score: 4 Non-prescribed substance use: marijuana (any form) Caffeine: Yes Exam Narrative: Exam Narrative: On examination in room 5 he is in no apparent distress he is pleasant alert nontoxic pupils equal round reactive to light there is no scleral icterus redness TMs are normal oropharynx normal there is no adenopathy anterior posterior chains, chest is good air entry bilaterally no wheezing crackles noted heart sounds are normal, abdomen is soft there is no guarding no organomegaly, bowel sounds are normal moves all extremities independently well no swelling. Neurologically intact skin reveals no petechiae rashes Const: Vital Signs, click to edit/add: Vital Signs - 24 hr 11/03/24 12:02 11/03/24 12:38 11/03/24 12:45 Temperature 97.5 F L Pulse Rate 65 63 Pulse Rate [Pulse Oximeter] 75 Respiratory Rate 16 13 12 Blood Pressure [Ri ght Upper Arm] 117/68 Pulse Oximetry 96 95 95 Oxygen Delivery Me thod Room Air 11/03/24 13:00 11/03/24 13:15 11/03/24 13:30 Temperature Pulse Rate 61 59 L 56 L Pulse Rate [Pulse Oximeter] Respiratory Rate 16 15 13 Blood Pressure [Ri ght Upper Arm] Pulse Oximetry 95 94 96 Oxygen Delivery Me thod 11/03/24 13:45 11/03/24 14:00 11/03/24 14:15 Temperature Pulse Rate 54 L 67 57 L Pulse Rate [Pulse Oximeter] Respiratory Rate 13 20 13 Blood Pressure [Ri ght Upper Arm] Pulse Oximetry 95 97 97 Oxygen Delivery Me thod 11/03/24 14:30 11/03/24 14:45 Temperature Pulse Rate 54 L 54 L Pulse Rate [Pulse Oximeter] Respiratory Rate 18 15 Blood Pressure [Ri ght Upper Arm] Pulse Oximetry 95 97 Oxygen Delivery Me thod Course Course ED Course: I spoke with the patient his troponins are negative x2 his BNP is elevated at 19 10, I do not have access to his echo report, but he told me 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 I suspect this may be slight heart failure with preserved ejection fraction, this will need to be worked up by his air quality instrument specialist, or his primary care physician, other possible causes include renal issues, pulmonary hypertension, myocardial trauma or her is arrhythmias, which I do not think this is a possibility. He has not had chemotherapy, and there is no evidence of any stroke-like symptoms. Perhaps this is a known phenomenon. Nevertheless he does not have a good history of shortness of breath when walking around, or exertional dyspnea. I think follow-up primary care to try to sort this out would be appropriate. We talked about worrisome signs and symptoms when he should come back and be seen. Vital Signs Vital signs: Initial Vital Signs Temperature 97.5 F L 11/03/24 12:02 Temperature Source Temporal Artery Scan 11/03/24 12:02 Pulse Rate 75 11/03/24 12:02 Respiratory Rate 16 11/03/24 12:02 Blood Pressure 117/68 11/03/24 12:02 Blood Pressure Mean 84 11/03/24 12:02 Blood Pressure Position Sitting 11/03/24 12:02 Pulse Oximetry 96 11/03/24 12:02 Oxygen Delivery Method Room Air 11/03/24 12:02 Vital Signs Temperature 97.5 F L 11/03/24 12:02 Pulse Rate 75 11/03/24 12:02 Respiratory Rate 16 11/03/24 12:02 Blood Pressure 117/68 11/03/24 12:02 Pulse Oximetry 96 11/03/24 12:02 Oxygen Delivery Method Room Air 11/03/24 12:02 Temperature 97.5 F L 11/03/24 12:02 Pulse Rate 54 L 11/03/24 14:45 Respiratory Rate 15 11/03/24 14:45 Blood Pressure 117/68 11/03/24 12:02 Pulse Oximetry 97 11/03/24 14:45 Oxygen Delivery Method Room Air 11/03/24 12:02 Medications Administered Medications: Discontinued Medications Generic Name Dose Route Start Last Admin Trade Name Bethany PRN Reason Stop Dose Admin Aspirin 324 mg 11/03/24 12:39 11/03/24 12:51 Aspirin 81 Mg Tab.Chew PO 11/03/24 12:40 324 mg ONCE ONE Administration MDM - Arrhythmia/Palpitations MDM Narrative Medical decision making narrative: During the evaluation of this patient I considered multiple differential diagnosis is. The life-threatening differential diagnosis include coronary disease/SD, pulmonary embolism, pneumothorax, pneumonia, and aortic dissection. Other differential diagnosis included but were not limited to pericarditis, myocarditis, chest wall pain, GERD, esophageal rupture, rib fracture contusion, pleurisy, as well as other etiologies. Medical Records Attestation: I reviewed the patient's medical records. Lab Data Attestation: I reviewed the patient's lab results. Labs: Lab Results 11/03/24 11/03/24 11/03/24 Range/Units 12:40 13:00 14:30 WBC 5.67 (4.50-11.00) K/uL RBC 4.02 L (4.30-5.90) m/uL Hgb 12.9 L (13.5-17.5) gm/dL Hct 38.1 (37.0-53.0) % MCV 95 (80-100) fL MCH 32 (26-34) pg MCHC 34 (32-36) gm/dL RDW Coeff of Edna 13.7 (11.5-15.5) % Plt Count 169 (140-440) K/uL Neut % (Auto) 66.8 (42.0-72.0) % Lymph % (Auto) 22.2 (20-44) % Dixie % (Auto) 9.7 (0.0-11.0) % Eos % (Auto) 0.9 (0.0-7.0) % Baso % (Auto) 0.4 (0.0-3.0) % Neut # (Auto) 3.79 (1.7-7.0) K/uL Lymph # (Auto) 1.26 (0.90-2.90) K/uL Dixie # (Auto) 0.50 (0.00-0.90) K/UL Eos # (Auto) 0.05 (0.00-0.50) K/uL Baso # (Auto) 0.02 (0.00-0.30) K/uL Abs Immat Gran (auto) 0.00 (0.00-0.30) K/uL Imm/Tot Granulo (auto) 0.0 % INR 0.99 (0.91-1.10) APTT 24 (23-33) Seconds D-Dimer Quant (PE/DVT) 0.55 H (0.00-0.50) ug/ml Sodium 140 (135-149) mmol/L Potassium 4.4 (3.6-5.1) mmol/L Chloride 110 (96-114) mmol/L Carbon Dioxide 24 (20-32) mmol/L Anion Gap 6 L (7-15) mEq/L BUN 20 (7-30) mg/dL Creatinine 1.0 (0.5-1.5) mg/dL Estimated Creat Clear 52.33 Estimated GFR 75 ml/min Glucose 98 (60-115) mg/dL Calcium 9.2 (8.4-10.6) mg/dL NT-Pro-B Natriuret Pep 1910 H (See Note) pg/mL POC Troponin I 0.01 0.01 (0.01-0.04) ng/ml Imaging Data Chest x-ray: Attestation: I have reviewed the pertinent imaging results. My impression: Negative chest X Radiologist's impression: [place] [address] Diagnostic Imaging Report Patient: Elle Polk Jr MR#: [id number] : 1940 Acct:[id number] Loc: ED Service Date: 11/03/[address]: Ordering Physician: Zak Waldrop M.D. Date of Service: 11/03/24 Procedure(s): XR chest 2V Accession Number(s): [id number] cc: Ann Ramirez PA-C; Zak Waldrop M.D.~ For Patients: As a result of the Century Cures Act, medical imaging exams and procedure reports are released immediately into your electronic medical record. You may view this report before your referring provider. If you have questions, please contact your health care provider. INDICATION: Chest pain TECHNIQUE: Chest radiograph 2 views COMPARISON: 07/16/2020 FINDINGS: Mediastinum: The mediastinum is normal in appearance. The heart silhouette is normal in size and morphology. Lung: Both lungs are unremarkable in appearance. No sign of pleural effusion seen. No pneumothorax is identified. Bone and Soft tissue: A chronic appearing severe compression deformity is noted in the mid thoracic spine. IMPRESSION: 1. No acute cardiopulmonary disease is seen. Dictated by: Yohan Nunes MD @ 11/03/2024 14:16:45 (Electronically Signed) ECG Data Attestation: I personally reviewed and interpreted this ECG as follows: Prior ECG tracings: available for review Interpretation: EKG shows normal sinus rhythm, ventricular rate 66, some ST wave abnormalities are noted inferiorly and laterally, when compared to old EKG from 08/11/2023, the ST wave abnormalities are new. Discharge Plan Discharge Clinical Impression: Palpitations, Elevated brain natriuretic peptide (BNP) level Patient Disposition: Home w/ Parent or Adult Condition: Stable Instructions: Heart Palpitations (ED) Additional Instructions: Home rest, follow-up with primary care, I am not sure with the cause of your elevated BNP is, but I believe this should be looked into, Dr. Coppola would be an excellent resource. Return here if worsening, things like chest pain shortness of breath, Activity Level: Light activity Discharge Diet: Regular Prescriptions: No Action alendronate 70 mg tablet 70 mg PO Patient Comments: TAKE 1 TABLET BY MOUTH ONCE PER WEEK IN THE MORNING. TAKE ON AN EMPTY STOMACH WITH A FULL GLASS OF WATER. DO NOT LIE DOWN FOR 1 HOUR. trazodone 100 mg tablet 200 mg PO QPM PRN losartan 25 mg tablet 50 mg PO DAILY metoprolol succinate 25 mg tablet extended release 24 hr 12.5 mg PO DAILY rosuvastatin 20 mg tablet 20 mg PO DAILY sildenafil [Viagra] 50 mg tablet 50 mg PO DAILY PRN Rx Instructions: administer 30 minutes to 4 hours before activity Follow Up/Referrals: Ann Ramirez PA-C [Primary Care Provider, Family Practice] Stand Alone Forms: Toxic Attire Info Instructions
[2024-11-03 13:53] LABS: NT Pro B Type NatriureticPept* 1910 pg/mL (See Note)
[2024-11-03 13:59] LABS: Troponin, Point-of-Care* 0.01 ng/ml (0.01-0.04)
[2024-11-03 14:57] LABS: Troponin, Point-of-Care* 0.01 ng/ml (0.01-0.04)
== END 2024-11-03 15:40 | disposition home or self-care (01) ==
PROVIDERS: Emergency Provider Family Medicine; PCP Student in an Organized Health Care Education/Training Program
DX: R00.2 Palpitations (principal); R79.89 Other specified abnormal findings of blood chemistry; B02.9 Zoster without complications
CPT/HCPCS: 36415; 71046; 80048; 83880; 84484; 85025; 85379; 85610; 85730; 93005; 94761; 99284; 99285; A9270